=== PATIENT | female | born 1935 | race Caucasian/White ===

== ENCOUNTER 2016-08-03 23:15 | Emergency (ER) | payer MEDICARE, BC ==
[~2016-08-03] VITALS: Ht 165.1 cm; Wt 108.4 kg
[~2016-08-03 23:15] MED LIST: APAP/OXYCODONE1 TA2 PO; ASPIRIN ADULT L81 M2 PO; BACTROBAN NASAL1 GM NS; BYSTOLIC2.5 MG PO; CENTRUM SILVER1 EAC1 PO; DILTIAZEM 24HR360 MG PO; DOCUSATE SOD100 MG PO; DULER200 INH; LEVALBUTER0.63 MG/4 NEB; MAGNESIUM400 M1 PO; MONTELUKAST SOD10 MG PO; MUCINEX1200 M1 PO; NORCO 5-325 TA1 EACH PO; NOVAPLUS V0.09 MG/Ac INH; RESTASIS 0.4 M0.4 M1 OU; SYNTHROID,LEV125 MCG PO; VALSARTAN320 MG PO; VITAMIN D400 UNI1 PO; XOPENEX HF0.045 MG/A IH; ZOLPIDEM TART10 MG PO
[2016-08-03] MEDS ORDERED: MAGNESIUM ELEME30 MG PO (23:32)
[2016-08-04 01:15] LABS: BASO % 0.4 % (0.0-1.0); EOS # 0.3 10*3/uL (0.0-0.4); EOS % 2.4 % (1.0-4.0); HEMATOCRIT 46.5 % (37.0-47.0); IG # 0.1 10*3/uL (0.0-0.1); LYMPH # 1.6 10*3/uL (1.3-4.4); LYMPH % 14.4 % (27.0-41.0); MEAN CELL VOLUME 87.2 fl (81.0-99.0); MEAN CORPUSCULAR HGB 26.3 pg (27.0-31.0); MEAN CORPUSCULAR HGB CONC 30.1 g/dl (33.0-37.0); MEAN PLATELET VOLUME 10.5 fl (9.6-12.3); MONO % 9.2 % (3.0-9.0); NEUT % 73.1 % (47.0-73.0); PLATELET COUNT AUTOMATED 474 10*3/uL (130-400); RED BLOOD COUNT 5.33 10*6/uL (4.10-5.10); RED CELL DISTRI WIDTH 15.9 % (0-14.5); WHITE BLOOD COUNT 10.9 10*3/uL (4.8-10.8)
[2016-08-04 01:31] LABS: ALBUMIN 3.2 gm/dl (3.1-4.5); ALKALINE PHOSPHATASE 78 U/L (45-117); BILIRUBIN, TOTAL 0.3 mg/dl (0.2-1.0); BUN 18 mg/dl (7-24); CARBON DIOXIDE 36 mmol/L (21-32); CHLORIDE 95 mmol/L (98-107); CPK 20 U/L (26-192); EST GLOM FILT AFRICAN AMERICAN > 60 ml/min; GLUCOSE 96 mg/dL (65-99); LDH 141 U/L (84-246); MAGNESIUM 2.5 mg/dL (1.5-2.1); SGOT/AST 13 IU/L (3-35); SGPT/ALT 21 U/L (12-78); SODIUM 136 mmol/L (136-145); TOTAL PROTEIN 6.5 gm/dL (6.4-8.2)
[2016-08-04 01:33] LABS: CKMB 0.9 ng/ml (0.5-3.6); TROPONIN I < 0.015 ng/ml (<0.045)
[2016-08-05] MEDS ORDERED: XOPENEX HF0.045 MG/A IH (15:06)
[2016-08-05] MEDS ORDERED: DOXYCYCLINE100 MG PO (15:06)
[2016-08-05] MEDS ORDERED: XOPENEX0.63 MG NEB (15:06)
[2016-08-05] MEDS ORDERED: MUCINEX1200 M1 PO (15:08)
[2016-08-05] MEDS ORDERED: HYDR25T PO (15:08)
== END 2016-08-04 02:48 | disposition home or self-care (01) ==
LOC: ED 23:15
PROVIDERS: Physician Assistant
DX: R04.0 Epistaxis (principal); Z87.891 Personal history of nicotine dependence; Z90.49 Acquired absence of other specified parts of digestive tract; Z79.82 Long term (current) use of aspirin; Z79.899 Other long term (current) drug therapy; Z88.1 Allergy status to other antibiotic agents; Z88.6 Allergy status to analgesic agent; Z88.8 Allergy status to other drugs, medicaments and biological substances

== ENCOUNTER 2016-08-04 08:30 | Inpatient (IN) | payer MEDICARE, BC ==
[2016-08-04] VITALS (9 sets, daily range): BP systolic 15–178; BP diastolic 78–96
[~2016-08-04] VITALS: Ht 165.1 cm; Wt 125.0 kg
--- NOTE | ~2016-08-04 | CON ---
[place], [place] REPORT OF CONSULTATION [id number] UNIT #: [id number] ROOM: 420 DOCTOR: MELBA MOYER MD BIRTHDATE: [birth year] DOS: 08/05/2016 PULMONARY CONSULTATION EVALUATION AND MANAGEMENT NOTE The consultation requested by hospitalist services for assessment of COPD exacerbation. HISTORY OF PRESENT ILLNESS: This is a 80 years old female who had been admitted to the hospital. The patient has been noted recurrent nasal bleeding as well as increased symptoms of shortness of breath and some cough. The patient denies symptoms of chest pain or any abdominal pain. Wheezing has been described intermittently with the tightness in the chest. The patient states that she has been getting the DuoNeb, is not helping her. She usually used the Xopenex for the patient resulting in improvement in the respiratory symptom. She was seen by [facility] in [place], [place] for the medical management of COPD. She denies any symptoms of chest pain. There were no symptoms of hemoptysis. REVIEW OF SYSTEMS: CONSTITUTIONAL SYMPTOMS: She does complain of fatigue and tiredness. Denies symptoms of fever or chills. EYES: Denies any burning, redness, or tenderness. EARS, NOSE, THROAT SYMPTOMS: No sore throat, hoarseness, otalgia, postnasal drainage or epistaxis. CARDIOVASCULAR SYSTEM: Denies anginal pain, edema of the lower extremities or palpitations. GASTROINTESTINAL SYMPTOMS: Denies dysphagia, nausea, vomiting, diarrhea, abdominal pain, hematemesis, melena, hematochezia. History of chronic obesity was known. SKIN: Denies lesions or rashes. MUSCULOSKELETAL SYMPTOMS: Denies acute joint pain, redness, or tenderness. CENTRAL NERVOUS SYSTEM: Denies dizziness, headache, diplopia or syncopal episodes. The remaining systems were reviewed with the patient, they were noted all negative. PAST MEDICAL HISTORY: Was described as, 1. Chronic atrial fibrillation. 2. Severe COPD. 3. Chronic hypoxic respiratory failure, use of oxygen supplementation 2 liters nasal cannula. 4. Intermittent epistaxis. 5. History of essential hypertension. 6. Severe obesity. 7. Chronic lymphedema of the lower extremities. 8. Decreased mobility secondary to osteoarthritis. 9. History of osteopenia. PAST SURGICAL HISTORY: Reported, 1. Bilateral cataract extraction with lens implantation. 2. Bilateral breast implants and then removal subsequently. [place], [place] REPORT OF CONSULTATION NAME: GURMEET TRAN UNIT #: [id number] ROOM: 420 DOCTOR: RANDALL HERRERA MD,MELBA BIRTHDATE: [birth year] 3. Ablation of the abnormal tract in the heart for this patient. 4. Hemorrhoidectomy. 5. Hysterectomy. 6. Tonsillectomy. SOCIAL HISTORY: The patient denies any tobacco use, alcohol or illicit drugs. She does not have any history of occupation related pulmonary exposure history. The patient is . She has 3 children. The tobacco use was noted younger age for the patient up to 3 packs of cigarettes per day that has been discontinued 25 years ago. FAMILY HISTORY: Father for the patient related to the alcohol use and pneumonia at the age of 3636 years old. The mother at the age of 9494 years old from natural causes and COPD. HOME MEDICATIONS: The patient was listed at the time of admission noted use of aspirin, Restasis eyedrops, Cardizem, Dulcolax, Dulera, Mucinex, Synthroid, magnesium, Singulair, multivitamin, Bystolic, valsartan and zolpidem. DRUG ALLERGIES: NOTED MULTIPLE ALLERGIES THAT INCLUDE THE, 1. BACTRIM. 2. MIRALAX. 3. FELDENE. 4. AVELOX AND ALL OTHER FLUOROQUINOLONES. 5. KEFLEX AND AMOXICILLIN. 6. ALLERGIES TO THE CORTICOSTEROIDS. PHYSICAL EXAMINATION: GENERAL: This is a 80 years old female who has been noted currently awake and alert without any distress at the time of the assessment. VITAL SIGNS: Height for the patient recorded by the nursing staff 5 feet 5 inches, weight of 275 pounds, BMI of 45.8. Vital signs show a normal temperature of the patient since admission. The respiratory rate ranged between 16-20, heart rate 70-72, blood pressure 174/85-147/90. Pulse oxygen saturation of the patient on 3 liters nasal cannula 92-93% saturation. HEENT: Chronic obesity. Head was atraumatic. Eyes nonicterus. NECK: Supple. CARDIOVASCULAR SYSTEM: S1, S2 audible. LUNGS: Noted with moderate decreased breath sounds in the lungs were noted bilaterally with expiratory wheezing. ABDOMEN: Soft, obese, nontender. EXTREMITIES: Shows chronic lymphedema changes for this patient. CENTRAL NERVOUS SYSTEM: Cranial nerves 2-12 intact. No focal deficits. MUSCULOSKELETAL SYMPTOMS: No deformities. SKIN: No lesions or rashes. LABORATORY DATA: The CMP of the patient that was done for the patient on 08/04/2016 for the patient in the Emergency Room of the patient noted normal BUN and creatinine. Carbon dioxide 36. CBC of the patient on 08/04/2016 on admission, WBC count 10.9, hemoglobin 14, hematocrit 46.5, platelet count [place], [place] REPORT OF CONSULTATION NAME: GURMEET TRAN UNIT #: [id number] ROOM: [facility] DOCTOR: RANDALL HERRERA MD,[facility] BIRTHDATE: [birth year] 471,[id number], mildly elevated. CBC of the patient on 08/05/2016, WBC count 11.4, hemoglobin and hematocrit was normal, platelet count is still elevated at 524. PT/PTT this morning normal. BMP this morning showed normal BUN and creatinine, CO2 of 33. The chest x-ray of the patient that was done, 1 view of the patient in the Emergency Room of the patient was reported without any acute pulmonary infiltration, hyperinflation was noted with mild cardiomegaly. IMPRESSION: 1. The patient who had been currently admitted to the hospital noted with acute exacerbation of chronic obstructive pulmonary disease with acute tracheobronchitis for this patient was noted. 2. The patient with intermittent epistaxis noted, most likely dryness of the nasal mucosa with long-term use of oxygen. 3. Chronic obesity. 4. Past history of heavy nicotine abuse of the patient that was discontinued many years ago. 5. History of essential hypertension and other multiple medical problems as noted in the past history. PLAN OF TREATMENT: Since the patient was noted allergy to corticosteroids, she has been ordered the Xopenex with ipratropium of the patient q. 4 hours, which remained as a treatment every 6 hours for the patient for the recurrent exacerbation of COPD. The DuoNeb has been discontinued. Mucinex was ordered for this patient to help improve the secretion clearance of the airways. Sputum for gram stain culture will be obtained. Other supportive therapy, plan of management to be continued as well. Usual care. Further treatment changes will be done based on the progression of the illness. The ENT consultation will be warranted for this patient to assess the patient for the epistaxis and long-term management would be done after that. Thanks for allowing me to participate in the care of this patient. MELBA PEREIRA MD CM:CONSTR:REPORT OF CONSULTATION 1321 08/06/16 0354 interface
[~2016-08-04 08:30] MED LIST changes: +MAGNESIUM ELEME30 MG PO
[2016-08-05] VITALS: BP 143/72
[2016-08-05 05:59] LABS: BASO % 0.1 % (0.0-1.0); HEMOGLOBIN 13.5 g/dl (12.0-16.0); IG # 0.1 10*3/uL (0.0-0.1); LYMPH # 0.7 10*3/uL (1.3-4.4); MEAN CELL VOLUME 84.5 fl (81.0-99.0); MEAN CORPUSCULAR HGB 26.5 pg (27.0-31.0); MEAN CORPUSCULAR HGB CONC 31.4 g/dl (33.0-37.0); MEAN PLATELET VOLUME 10.5 fl (9.6-12.3); MONO # 0.6 10*3/uL (0.1-1.0); MONO % 5.6 % (3.0-9.0); NEUT % 87.2 % (47.0-73.0); PLATELET COUNT AUTOMATED 524 10*3/uL (130-400); RED BLOOD COUNT 5.09 10*6/uL (4.10-5.10); RED CELL DISTRI WIDTH 15.8 % (0-14.5); WHITE BLOOD COUNT 11.4 10*3/uL (4.8-10.8)
[2016-08-05 06:24] LABS: BUN 15 mg/dl (7-24); CARBON DIOXIDE 33 mmol/L (21-32); CHLORIDE 95 mmol/L (98-107); CHOLESTEROL 166 mg/dL (<200); EST GLOM FILT AFRICAN AMERICAN > 60 ml/min; FREE T4 1.38 ng/dl (0.76-1.46); GLUCOSE 166 mg/dL (65-99); HDL CHOLESTEROL 57 mg/dl (40-60); LDL CHOLESTEROL 89 mg/dL (9-159); MAGNESIUM 2.3 mg/dL (1.5-2.1); POTASSIUM 3.8 mmol/L (3.5-5.1); SODIUM 135 mmol/L (136-145); TRIGLYCERIDES 99 mg/dl (<150); VLDL CHOLESTEROL 20 mg/dL (6-40)
[2016-08-05 06:40] LABS: PROTHROMBIN TIME 10.4 SECONDS (9.0-12.4)
[2016-08-05 06:49] LABS: HEMOGLOBIN A1c 5.3 % (4.8-5.6)
[2016-08-05 08:00] VITALS: BP 178/86
[2016-08-05 08:31] LABS: VITAMIN D, 25-HYDROXY 29.3 ng/mL (30-100)
[2016-08-05 08:32] LABS: FOLIC ACID 23.51 ng/mL (>5.38)
[2016-08-05 12:00] VITALS: BP 174/85
[2016-08-05] MEDS ORDERED: DOXYCYCLINE100 MG PO (15:06)
[2016-08-05] MEDS ORDERED: XOPENEX0.63 MG NEB (15:06)
[2016-08-05] MEDS ORDERED: XOPENEX HF0.045 MG/A IH (15:06)
[2016-08-05] MEDS ORDERED: HYDR25T PO (15:08)
[2016-08-05] MEDS ORDERED: MUCINEX1200 M1 PO (15:08)
[2016-08-05 16:00] VITALS: BP 158/78
== END 2016-08-05 16:30 | disposition home or self-care (01) | DRG 189 ==
LOC: ED 08:30 → EDHOLD 09:19 → 4E 09:49
PROVIDERS: Family Medicine
DX: J96.20 Acute and chronic respiratory failure, unspecified whether with hypoxia or hypercapnia (principal); J44.0 Chronic obstructive pulmonary disease with (acute) lower respiratory infection; I48.2 Chronic atrial fibrillation; Z99.81 Dependence on supplemental oxygen; J44.1 Chronic obstructive pulmonary disease with (acute) exacerbation; Z68.42 Body mass index [BMI] 45.0-49.9, adult; I89.0 Lymphedema, not elsewhere classified; M85.80 Other specified disorders of bone density and structure, unspecified site; I10 Essential (primary) hypertension; E03.9 Hypothyroidism, unspecified; E66.01 Morbid (severe) obesity due to excess calories; J20.9 Acute bronchitis, unspecified; R04.0 Epistaxis; Z96.1 Presence of intraocular lens; Z88.2 Allergy status to sulfonamides; Z88.1 Allergy status to other antibiotic agents; Z88.8 Allergy status to other drugs, medicaments and biological substances; Z91.048 Other nonmedicinal substance allergy status; Z98.42 Cataract extraction status, left eye; Z98.41 Cataract extraction status, right eye; Z90.49 Acquired absence of other specified parts of digestive tract; Z90.710 Acquired absence of both cervix and uterus; Z87.891 Personal history of nicotine dependence; Z81.1 Family history of alcohol abuse and dependence; Z82.5 Family history of asthma and other chronic lower respiratory diseases

== ENCOUNTER → 2016-10-28 | Outpatient (CLI) | payer MEDICARE, BC ==
[~2016-10-28] MED LIST changes: +DOXYCYCLINE100 MG PO; +HYDR25T PO; +XOPENEX0.63 MG NEB
[2016-10-28 10:34] LABS: BASO % 0.4 % (0.0-1.0); EOS # 0.2 10*3/uL (0.0-0.4); EOS % 2.1 % (1.0-4.0); HEMATOCRIT 41.9 % (37.0-47.0); HEMOGLOBIN 12.8 g/dl (12.0-16.0); IG # 0.1 10*3/uL (0.0-0.1); LYMPH # 1.4 10*3/uL (1.3-4.4); LYMPH % 18.1 % (27.0-41.0); MEAN CELL VOLUME 92.3 fl (81.0-99.0); MEAN CORPUSCULAR HGB 28.2 pg (27.0-31.0); MEAN CORPUSCULAR HGB CONC 30.5 g/dl (33.0-37.0); MEAN PLATELET VOLUME 10.4 fl (9.6-12.3); MONO # 0.6 10*3/uL (0.1-1.0); MONO % 7.2 % (3.0-9.0); NEUT # 5.7 10*3/uL (2.3-7.9); NEUT % 71.3 % (47.0-73.0); PLATELET COUNT AUTOMATED 386 10*3/uL (130-400); RED BLOOD COUNT 4.54 10*6/uL (4.10-5.10); RED CELL DISTRI WIDTH 15.3 % (0-14.5)
[2016-10-28 10:55] LABS: ALBUMIN 2.9 gm/dl (3.1-4.5); ALKALINE PHOSPHATASE 73 U/L (45-117); BILIRUBIN, TOTAL 0.4 mg/dl (0.2-1.0); BUN 13 mg/dl (7-24); CARBON DIOXIDE 35 mmol/L (21-32); CHLORIDE 97 mmol/L (98-107); EST GLOM FILT AFRICAN AMERICAN > 60 ml/min; GLUCOSE 86 mg/dL (65-99); POTASSIUM 4.1 mmol/L (3.5-5.1); SGOT/AST 14 IU/L (3-35); SGPT/ALT 16 U/L (12-78); SODIUM 138 mmol/L (136-145); TOTAL PROTEIN 6.4 gm/dL (6.4-8.2)
== END | disposition home or self-care (01) ==
LOC: LAB 10:04
PROVIDERS: Internal Medicine
DX: D50.9 Iron deficiency anemia, unspecified (principal); E03.9 Hypothyroidism, unspecified; Z79.899 Other long term (current) drug therapy

== ENCOUNTER 2018-04-18 09:45 | Inpatient (IN) | payer MEDICARE, BC ==
[2018-04-18] VITALS (34 sets, daily range): BP systolic 70–169; BP diastolic 44–99
[~2018-04-18] VITALS: Ht 165.1 cm; Wt 103.4 kg
--- NOTE | ~2018-04-18 | PR ---
[place], [place] PROGRESS NOTE NAME: GURMEET TRAN UNIT #: [id number] ROOM: [facility] DOCTOR: BENITA DENG MD BIRTHDATE: [birth year] DOS: 04/19/2018 SUBJECTIVE: The patient still deeply sedated, intubated and on mechanical ventilation. PHYSICAL EXAMINATION: VITAL SIGNS: Blood pressure ranging between 71 systolic to 101 systolic, heart rate of 80 beats per minute, breathing 16 times per minute on mechanical ventilation and temperature of 98.7 degrees Fahrenheit. GENERAL APPEARANCE: The patient deeply sedated and intubated and on mechanical ventilation. HEENT AND NECK: Exam within normal limits. CARDIOVASCULAR SYSTEM: Heart rate is regular in rate and rhythm. S1 and S2 normally audible. LUNGS: Clear to auscultation. ABDOMEN: Soft, nontender. No obvious organomegaly. Bowel sounds are present. EXTREMITIES: Without significant cyanosis or edema. IMPRESSION: 1. Acute respiratory failure with pneumonia and sepsis along with congestive heart failure, suspected congestive heart failure. The patient now intubated and on mechanical ventilation and being treated with antibiotics. The patient's leukocytosis still present with a white cell count of 18,000. We are taking bedsore precautions using an air mattress and regular every 2 hour turning. 2. Hypokalemia, treated with extra potassium supplements. Levels will be repeated. 3. Leukocytosis secondary to pneumonia and sepsis. 4. Acute exacerbation of chronic obstructive pulmonary disease, being treated as mentioned above with DuoNebs and oxygen and mechanical ventilation. 5. Hypotension secondary to sepsis, being treated with Levophed and hydration with normal saline. 6. Hypothyroidism, treated with thyroid supplements. 7. Chronic lymphedema in lower extremities to be managed with compression socks. 8. Adult failure to thrive history. We are taking bedsore precautions. 9. Morbid obesity with a BMI of 38. [place], [place] PROGRESS NOTE NAME: GURMEET TRAN UNIT #: [id number] ROOM: [facility] DOCTOR: BENITA DENG MD BIRTHDATE: [birth year] BENITA DENG MD CM:PNTRANS [id number] BENITA DENG MD 04/20/18 0452 interface
--- NOTE | ~2018-04-18 | PR ---
[place], [place] PROGRESS NOTE NAME: GURMEET TRAN UNIT #: [id number] ROOM: [facility] DOCTOR: YEIMI MACE,ABHINAV BIRTHDATE: [birth year] DOS: 04/22/2018 REASON FOR VISIT: Elevated troponin and atrial fibrillation. HISTORY OF PRESENT ILLNESS: The patient is on the ventilator, alert. Denies any chest pain or palpitations. REVIEW OF SYSTEMS: Review of the 10 system negative, but limited due to patient being on ventilator. RHYTHM STRIPS: The patient was in atrial fibrillation with a controlled ventricular rate. PHYSICAL EXAMINATION: VITAL SIGNS: Blood pressure 124/57, pulse 87, respiratory rate 20. GENERAL: Alert, comfortable, in no acute distress. The patient is on ventilator. HEAD AND NECK: The patient on the vent, but alert. NECK: Supple, no distended neck veins, no carotid bruit. CHEST: Symmetrical. LUNGS: Few scattered rhonchi. HEART: Slightly irregular. No S3. ABDOMEN: Obese, nontender. EXTREMITIES: Showed 2+ edema bilaterally, which is chronic. Distal pulses are fair. SKIN: Warm and dry. No cyanosis, no clubbing. MEDICATIONS AND LABORATORIES: Reviewed. IMPRESSION: 1. Elevated troponin due to acute hypoxic respiratory failure. 2. Atrial fibrillation, new onset. 3. Respiratory failure, on mechanical ventilation. 4. Sepsis. 5. Chronic lymphedema. 6. Hypertension. RECOMMENDATIONS: 1. Continue current medications. 2. Blood pressure and heart rates are stable. 3. Once she is extubated, we will discuss with her and her family regarding risks and benefits of the long-term oral anticoagulation. 4. There is no family at bedside at the time of examination. [place], [place] PROGRESS NOTE NAME: GURMEET TRAN UNIT #: [id number] ROOM: [facility] DOCTOR: ABHINAV JALLOH MD BIRTHDATE: [birth year] ABHINAV JALLOH MD CM:PNTRANS [id number] ABHINAV JALLOH MD 04/23/18 0315 interface
--- NOTE | ~2018-04-18 | CON ---
[place], [place] REPORT OF CONSULTATION NAME: GURMEET TRAN UNIT #: [id number] ROOM: [facility] DOCTOR: ABHINAV JALLOH MD BIRTHDATE: [birth year] DOS: 04/19/2018 REASON FOR CONSULTATION: Elevated troponin. CLINICAL HISTORY: The patient is an 82-year-old patient who was brought to the Emergency Room for acute respiratory failure and patient requiring intubation and was admitted to the hospital and she noted to have a slightly elevated cardiac troponin and Cardiology consulted for further recommendations. Since the patient on the ventilator and sedated, history was obtained from the chart and the nursing staff. There is no family at the bedside at the time of examination. Apparently, there is no chest pain, syncope at home prior to admission. She was diagnosed with respiratory failure and sepsis. REVIEW OF SYSTEMS: Review of the 10 systems are limited due to the patient being on ventilator and sedated. PAST MEDICAL HISTORY: 1. History of hypertension. 2. Atrial fibrillation. 3. Hypothyroidism. 4. Lymphedema. 5. Morbid obesity. PAST SURGICAL HISTORY: 1. Bilateral breast implants. 2. History of radiofrequency ablation, details unknown. 3. Cholecystectomy. 4. Hysterectomy. 5. Hemorrhoidectomy. 6. Tonsillectomy. 7. Cataract surgery. SOCIAL HISTORY: Longstanding smoking 50+ years. Does not drink alcohol, does not use illicit drugs. FAMILY HISTORY: Nil contributory due to her age. Mother has COPD and father history of alcohol use. ALLERGIES: THE PATIENT IS ALLERGIC TO MULTIPLE MEDICATIONS. MEDICATIONS: Reviewed. PHYSICAL EXAMINATION: VITAL SIGNS: Blood pressure 125/62, pulse 75, respirations 14, weight 103.4 kilos. GENERAL: The patient was on ventilator and sedated. HEAD AND NECK: The patient on ventilator and sedated. NECK: Supple. No distinct mass, no carotid bruit. CHEST: Symmetrical. LUNGS: A few scattered rhonchi, diminished at bases. [place], [place] REPORT OF CONSULTATION NAME: GURMEET TRAN UNIT #: [id number] ROOM: [facility] DOCTOR: ABHINAV JALLOH MD BIRTHDATE: [birth year] HEART: Regular rhythm, no S3. Grade 1/6 systolic murmur. ABDOMEN: Bowel sounds normal. EXTREMITIES: Showed 1-2+ edema. Distal pulses are palpable. SKIN: Warm and dry. No cyanosis, no clubbing. RECTAL: Deferred. NEUROLOGIC: Limited due to the patient was on ventilator and sedated. Labs, imaging studies, and EKG reviewed. EKG shows sinus rhythm, right bundle branch block, old inferior infarction, T-wave inversion V1-V3. Cardiac troponin 0.1. CBC, chemistry reviewed. Potassium 3.0, hemoglobin 10.4, white cell count 18,000. IMPRESSION: 1. Acute hypoxic respiratory failure, on mechanical ventilation. 2. Sepsis. 3. Borderline elevation of troponin, probably secondary to her hypoxia and respiratory failure. 4. Hypertension. 5. Encephalopathy. 6. Leukocytosis. 7. Mild hypokalemia. 8. Right bundle branch block. 9. Non-morbid obesity. 10. Chronic lymphedema. RECOMMENDATIONS: 1. Currently, her blood pressure and heart rates are stable. 2. Check 2D echo for LV function and valvular function. 3. There is no family at bedside at the time of my examination. No further cardiac testing at this time except a 2D echo and hopefully we can get out of the ventilator soon. 4. Continue current cardiac medications including aspirin, beta blockers and Cardizem. ABHINAV JALLOH MD CM:CONSTR:REPORT OF CONSULTATION 33 04/20/18 1529 interface
--- NOTE | ~2018-04-18 | PR ---
[place], [place] PROGRESS NOTE NAME: GURMEET TRAN [facility] #: [id number] UNIT #: [id number] ROOM: [facility] DOCTOR: RANDALL HERRERA MD,MELBA BIRTHDATE: [birth year] DOS: 04/20/2018 PULMONARY CRITICAL CARE FOLLOWUP SUBJECTIVE: The patient was seen and examined on 04/20/2018. She remains on mechanical ventilation. Sedation has been currently given to the patient as propofol 25 mcg per kilogram per minute infusion. She was also noted with Levophed. The dose has been increased to 60 mcg per kilogram per minute infusion as well. The patient has A line in place. She has not been noted any ongoing acute new respiratory complaints. The patient at this time. The diuretic therapy was continued, Lasix 40 mg b.i.d., given 80 mg oral Lasix dose yesterday. She has been noted with a pleural fluid negative fluid balance. The patient had 50 mL with that. Other urinary output. The patient has been increased. The patient was continued on antibiotics. She has been continued managed by the Infectious Disease specialist for the infectious reasons. The family member at this time has been still deciding further advanced directive and care for this patient. Once the patient will be liberated from mechanical ventilator firm decision has not been used by the family members. Certainly they do not wish the patient to have a tracheostomy performed if that will be needed post-liberation from mechanical ventilation. Low grade fever noted, which was a rectal temperature. OBJECTIVE: VITAL SIGNS: Blood pressure ranges between 75 and 80-100/70. The temperature of the patient 99.5 degree Fahrenheit, respiration 14, same mechanical ventilator, heart rate of 94 with atrial fibrillation. The pulse oxygen saturation of the patient recorded 40% oxygen 97% saturation. HEENT: The patient remained orally intubated, orogastric tube is in place. There was no further evidence of bleeding blood solution and throat were noted, which were suctioned out. Head was atraumatic. CARDIOVASCULAR: S1, S2 is audible. LUNGS: The patient was noted with moderate decreased breath sounds in the lungs bilaterally with occasional crackles. There was no wheezing. ABDOMEN: Soft with morbid obesity. Bowel sounds present. EXTREMITIES: Still shows severe edema of the extremity with finding of anasarca. Partial reduction noted from yesterday. VISIBLE SKIN: No lesions or rashes. MUSCULOSKELETAL: No deformity. CENTRAL NERVOUS SYSTEM: The patient was nodding head with reduction sedation or sedation vacation that was confirmed this morning. LABORATORY DATA: The endotracheal aspirate of this month, many white blood cells, rare gram-positive cocci in pairs and rare gram-positive bacilli normal. Preliminary final results are pending. The culture of the urine shows light growth of Citrobacter freundii. Arterial blood gas today, pH of 7.43, pCO2 of 46, pO2 of 93 on assist control, volume control, mechanical ventilation 40% oxygen. BMP this morning, BUN 22, creatinine was normal. Glucose 125. Potassium 3.2 this morning, CO2 35. Magnesium yesterday noted 1.6 in the BMP which were repeated after the initial infusion of the potassium for this patient's supplements shows potassium 2.8. After that, the patient received 2 [place], [place] PROGRESS NOTE NAME: GURMEET TRAN UNIT #: [id number] ROOM: [facility] DOCTOR: RANDALL HRERERA MD,MELBA BIRTHDATE: [birth year] more care under potassium chloride 20 The patient each dose. IMPRESSION: 1. The patient was noted with acute congestive heart failure, anasarca with possibly diastolic dysfunction. 2. Morbid obesity suspicion of obstructive sleep apnea disorder. 3. Acute exacerbation of chronic obstructive pulmonary disease. 4. Rule out any superimposed infection as well. If colonization of the urine most likely will be considered to light growth of urine culture was showing Citrobacter freundii. 5. The patient morbid obesity with overall debility in mostly bed bound status. PLAN OF MANAGEMENT: Continuation of the current medical management, plan continue diuretic therapy, minimizing intravenous fluid intake. The concentration of Levophed will be doubled up. The decrease the Levophed dose to maintain of 65 or greater. Continue ventilator bundle management. Usual care. Supportive therapy, plan of management. We will most likely be started patient tomorrow morning depends on further improvement in the respiratory status in general, obtain a chest x-ray in the morning. Supplementation of potassium has been ordered 2 more doses of intravenous infusion of potassium chloride 20 mEq each and then daily dose of potassium 40 with the NG tube will be started. The feeding for the patient will be continued same dose at this time with hyperchloremic feet. Usual care, other supportive therapy, plan of management, care plan and therapies and care. Total time in pulmonary critical evaluation and management was 38 minutes. MELBA PEREIRA MD CM:DILLANTRANS [id number] MELBA HERRERA MD 04/20/18 1839 interface
--- NOTE | ~2018-04-18 | PR ---
[place], [place] PROGRESS NOTE NAME: GURMEET TRAN [facility] #: [id number] UNIT #: [id number] ROOM: [facility] DOCTOR: RANDALL HERRERA MD,MELBA BIRTHDATE: [birth year] DOS: 04/23/2018 SUBJECTIVE: The patient was noted comfortable at this time successfully treated with mechanical ventilation, use the BiPAP pressure to lower pressure because of the difficulty tolerating to improve her pressure with the BiPAP as advised. This morning, using oxygen supplementation nasal cannula, noted fully awake and alert and conversing, can speak. She has been kept n.p.o. intentionally for the last 24 hours to assess the swallowing the patient this morning prior to starting oral nutrition support. She denies symptoms of chest pain or dysphagia. She was asked for food as well. Denies symptoms of nausea, vomiting, diarrhea, abdominal pain, hematemesis or melena. The edema of the lower extremity has been noted with gradual reduction. She denies symptoms of headache or diplopia. OBJECTIVE: VITAL SIGNS: Normal temperature, respiratory rate 16, heart rate 83, blood pressure 95/25. The patient's vasopressors have been gradually decreased and discontinued. The pulse ox saturation 90% on 3 liters nasal cannula, BiPAP 94% saturation 35%-40% oxygen use. HEENT: No new change. NECK: Supple. CARDIOVASCULAR: S1, S2 is audible. LUNGS: The patient was noted without any wheezing or crackles. ABDOMEN: Soft, nontender. Bowel sounds present. EXTREMITIES: The patient was noted with chronic lymphedema superimposed edema. MUSCULOSKELETAL: Without acute deformities. CENTRAL NERVOUS SYSTEM: Unable to assess, but noted with generalized weakness and fatigue. The patient has been moving the upper extremities and decreased movement in the lower extremities. LABORATORY DATA: The patient's CMP this morning, BUN normal, creatinine was normal, CO2 of 41. Sodium 147. Albumin 1.8. IMPRESSION: The patient with anasarca picture, congestive heart failure, diastolic dysfunction, metabolic alkalosis secondary to intravascular volume depletion and hypernatremia, morbid obesity, suspected obstructive sleep apnea disorder, acute exacerbation of chronic obstructive pulmonary disease. PLAN OF MANAGEMENT: Physical therapy and occupation therapy. Bronchodilator to be continued. Continuation of other therapy, plan of management at this time. Diuretic will be changed to the Lasix. The patient switching from IV to oral dose as well. Monitor metabolic alkalosis. At this time, no intervention will be necessary. Continue to use BiPAP intermittent during the continuous at nighttime. Other palliative care to be continued. Physical therapy and occupation therapy. Vasopressors in case of the mean arterial pressure of less than 65. The patient has been assessed personally at the bedside and noted without any swallowing difficulty with clear liquids. She will be started on the regular diet. The patient has tolerated for the calorie support and nutritional support. Past, family, social, surgical history remains unchanged since admission, documentation in my consultation. [place], [place] PROGRESS NOTE NAME: GURMEET TRAN UNIT #: [id number] ROOM: [facility] DOCTOR: MELBA MOYER MD BIRTHDATE: [birth year] MELBA PEREIRA MD CM:PNTRANS [id number] MELBA HERRERA MD 04/23/18 1537 interface
--- NOTE | ~2018-04-18 | CON ---
[place], [place] REPORT OF CONSULTATION NAME: GURMEET TRAN UNIT #: [id number] ROOM: [facility]- DOCTOR: JAMIN OROZCO MD BIRTHDATE: [birth year] DOS: 04/18/2018 REASON FOR CONSULTATION: Pneumonia/sepsis. CHIEF COMPLAINT: Altered mental status. HISTORY OF PRESENT ILLNESS: This is an 82-year-old female presenting from custodial for chief complaint of altered mental status. Currently, the patient is intubated in the ICU and on pressors. Her son is at bedside who provided me much of the history. According to the son, 2 days prior to the presentation she was at baseline quite sharp and did not have any complaints and he really does not know what happened in the last 2 days. She was having difficulty breathing and according to the son, she was on lot of Lasix because of her leg swelling. On review of her vitals, she is afebrile, currently on 100% FiO2. Labs revealed leukocytosis of 17,000, which is predominantly neutrophilic. Her urinalysis shows pyuria. Blood cultures, urine cultures are in process. The patient has been started on vanc, meropenem and azithromycin. Chest x-ray done shows bilateral small pleural effusions and right perihilar opacities. No previous recent chest x-rays to compare. In the past, her urine cultures have grown Citrobacter as well as E. coli. No recent admissions in last few months. I do not have the records from custodial if she has been treated for UTI recently. PAST MEDICAL HISTORY: Significant for AFib, COPD, constipation, epistaxis, hypertension, hypothyroidism, lymphedema of both lower extremities, morbid obesity, pelvic fracture. PAST SURGICAL HISTORY: Bilateral cataract extract, bilateral breast implant and subsequent removal, history of cardiac radiofrequency ablation, cholecystectomy, hemorrhoidectomy, hysterectomy, tonsillectomy. SOCIAL HISTORY: Significant for 50 plus pack-year history of smoking, nonalcoholic, no illicit drug use. FAMILY HISTORY: Father had a history of alcohol abuse. Mother history of COPD. ALLERGIES: Extensive allergy list that included AMOXICILLIN, CEFDINIR, KEFLEX, CIPRO and LEVAQUIN, MOXIFLOXACIN, BACTRIM. Type of allergy not mentioned. HOME MEDICATIONS: Reviewed. REVIEW OF SYSTEMS: Cannot be obtained as the patient is intubated and sedated. PHYSICAL EXAMINATION: VITAL SIGNS: Current vitals include temperature 97.2, pulse rate 68, respiratory rate 14, blood pressure 132/63, currently 100% of FiO2. GENERAL: The patient is currently intubated and sedated. HEENT: Atraumatic, normocephalic. PERRLA, EOMI. RESPIRATORY: Air entry bilaterally equal. Coarse crackles bilateral lungs. CARDIOVASCULAR: S1, S2 normal, no murmurs or rubs. [place], [place] REPORT OF CONSULTATION NAME: GURMEET TRAN UNIT #: [id number] ROOM: [facility] DOCTOR: JAMIN OROZCO MD BIRTHDATE: [birth year] ABDOMEN: Soft, nontender, nondistended. EXTREMITIES: Bilateral extensive lymphedema. SKIN: There is papular rash over her upper chest with erythematous base. No pus. LABORATORY AND IMAGING: Reviewed, mentioned in HPI. ASSESSMENT: 1. Acute encephalopathy, infectious versus metabolic causes. 2. Leukocytosis. 3. Sepsis, pneumonia/urinary tract infection. PLAN: 1. At this time, although it is unclear what led to her acute encephalopathy, according to the family she was not having much of pneumonia symptoms and a chest x-ray at this time shows some perihilar changes which could be cardiac in nature as well; however, the patient has hemodynamic instability and I would treat it as pneumonia as well until respiratory cultures are done and they are normal. 2. UA does show pyuria. She does not have any chronic indwelling Hummel catheter. Follow the urine cultures. Recent urine culture shows Citrobacter. I am not clear whether she was treated appropriately for that or not. The patient has a big list of allergies including amoxicillin, cefdinir, but she is tolerating meropenem, can discontinue vancomycin. Okay to keep meropenem plus azithromycin. Check for rapid influenza. Consider Cardiology consult. Thank you for your consult. Please call for any questions. Jamin Orozco MD CM:CONSTR:REPORT OF CONSULTATION 1653 04/19/18 0225 interface
--- NOTE | ~2018-04-18 | PR ---
[place], [place] PROGRESS NOTE NAME: GURMEET TRAN [facility] #: [id number] UNIT #: [id number] ROOM: [facility] DOCTOR: TA RAGLAND MD BIRTHDATE: [birth year] DOS: 04/24/2018 CARDIOLOGY PROGRESS NOTE SUBJECTIVE: The patient was seen at her bedside today 04/24/2018 for followup of her dyspnea and hypotension. She was weaned off of pressors and her blood pressure now is 97/48. She remains afebrile. She tells me that she feels more breathless this morning and that she is working harder to breathe. Nurses note that she does seem more comfortable when on BiPAP. For the last 5 days, she has been in negative fluid balance, although her diuresis is dropping off. She denies any chest pain. She has a nonproductive cough. PHYSICAL EXAMINATION: VITAL SIGNS: Today, her pulse is 73 and regular, blood pressure is 97/48. She is afebrile. She weighs 103.4 kilograms. NECK: Supple. I see no jugular distention. Carotids are full. LUNGS: Respirations are labored at rest and she has tachypnea. She does have decreased breath sounds at the bases. I heard no rales. HEART: Had a regular rhythm with an S4 gallop. I hear no S3. Heart tones are distant, however. ABDOMEN: Obese. EXTREMITIES: Both upper and lower do seem "puffy". She does have lymphedema but in addition, she does appear to have some pitting. LABORATORY DATA: Hemoglobin is 9.3, white count 8700, platelet count 297,000. Sodium 147, potassium 3.7, BUN 17, creatinine 0.4, total protein is low at 5.4 with an albumin of 1.8. Her most recent blood gas was done 2 days ago while she was still intubated. Her pH was 7.358 with a pCO2 of 67.5 and a pO2 of 94.2. IMPRESSION: 1. Borderline elevation of troponin due to hypoxic respiratory failure. 2. Paroxysmal atrial fibrillation. The patient is currently in sinus rhythm. 3. Respiratory failure. The patient has tolerated extubation. 4. Lymphedema. 5. Hypotension, etiology not fully determined. Her echocardiogram showed normal left ventricular function. 6. Pneumonia and urinary tract infection with sepsis. These appear to be well controlled. PLAN: We will check another chest x-ray today along with a blood gas. The patient will be using BiPAP as needed. We thank the hospitalist physicians for asking our advice regarding her care. [place], [place] PROGRESS NOTE NAME: GURMEET TRAN UNIT #: [id number] ROOM: [facility] DOCTOR: TA RAGLAND MD BIRTHDATE: [birth year] TA RAGLAND MD CM:PNTRANS [id number] TA RAGLAND MD 04/25/18 0414 interface
--- NOTE | ~2018-04-18 | PR ---
[place], [place] PROGRESS NOTE NAME: GURMEET TRAN UNIT #: [id number] ROOM: [facility] DOCTOR: ABHINAV JALLOH MD BIRTHDATE: [birth year] DOS: 04/20/2018 CARDIOLOGY FOLLOWUP VISIT NOTE REASON FOR VISIT: Atrial fibrillation and elevated troponin. SUBJECTIVE: The patient is still on the ventilator, but alert, no acute distress. Family is at bedside. REVIEW OF SYSTEMS: Limited since the patient was on a ventilator. RHYTHM STRIPS: The patient is in atrial fibrillation with occasional rapid ventricular rate. PHYSICAL EXAMINATION: VITAL SIGNS: Reviewed. GENERAL: The patient is alert, but on ventilator. HEENT: Pupils are round and equal. NECK: Supple, no distended neck veins, no carotid bruit. CHEST: Symmetrical. LUNGS: A few scattered rhonchi. Good air entry bilaterally. HEART: Irregularly irregular, grade 1/6 systolic murmur. ABDOMEN: Benign, nontender. Bowel sounds normal. EXTREMITIES: Showed 2+ edema. Distal pulses are fair. SKIN: Warm and dry. No cyanosis. MEDICATIONS: Reviewed. LABORATORY DATA: Reviewed. IMPRESSION: 1. Borderline elevation of troponin due to hypoxic respiratory failure. 2. Atrial fibrillation with rapid ventricular rate. 3. Respiratory failure, on ventilator. 4. Hypertension. 5. Sepsis. 6. Chronic lymphedema. RECOMMENDATIONS: 1. Add digoxin for her rate control. 2. Monitor blood pressure and heart rates. 3. Briefly discussed with her son who is at bedside regarding risks and benefits of the oral anticoagulation. Continue her Lovenox for now. 4. Once the patient is extubated, we will discuss oral anticoagulation. [place], [place] PROGRESS NOTE NAME: GURMEET TRAN UNIT #: [id number] ROOM: [facility] DOCTOR: ABHINAV JALLOH MD BIRTHDATE: [birth year] ABHINAV JALLOH MD CM:PNTRANS [id number] ABHINAV JALLOH MD 04/21/18 0136 interface
--- NOTE | ~2018-04-18 | DS ---
[place], [place] DISCHARGE SUMMARY NAME: GURMEET TRAN UNIT #: [id number] ROOM: [facility] DOCTOR: BENITA DENG MD BIRTHDATE: [birth year] DOS: 04/25/2018 DISCHARGE DIAGNOSES: 1. Borderline elevation of troponin I levels secondary to hypoxemic respiratory failure. 2. Paroxysmal atrial fibrillation. 3. Acute over chronic respiratory failure with acute exacerbation of chronic obstructive pulmonary disease. 4. Bilateral chronic leg edema. 5. Hypotension from heart failure, but echocardiogram showing normal left ventricular ejection fraction. 6. Pneumonia, urinary tract infection and sepsis. 7. Advanced adult failure to thrive. 8. Morbid obesity with BMI of 38. HOSPITAL COURSE: The patient was admitted and treated for acute exacerbation of COPD and acute over chronic respiratory failure along with pneumonia, treated with bronchodilators, antibiotics, oxygen and the patient's condition improved. The patient went into acute respiratory failure and required intubation and mechanical ventilation and finally was weaned off the ventilator by Dr. England. Leukocytosis secondary to pneumonia, improved with treatment. Benign essential hypertension. Blood pressure was monitored and treated. The patient remained on Cardizem. The patient did have a hypotensive episode, which resolved. Hypothyroidism, replaced with thyroid supplements. Chronic lymphedema involving lower extremities, treated with compression socks. Advance adult failure to thrive. We took bedsore and fall precautions and turn him every 2 hours. DISCHARGE MANAGEMENT: Colace 200 mg daily, Synthroid 150 mcg daily, Zebeta 2.5 mg every 12 hours, Cardizem 90 mg every 6 hours, DuoNebs every 4 hours, Protonix 40 mg daily. [place], [place] DISCHARGE SUMMARY NAME: GURMEET TRAN UNIT #: [id number] ROOM: [facility] DOCTOR: BENITA DENG MD BIRTHDATE: [birth year] BENITA DENG MD CM:DISCHARG [id number] BENITA DENG MD 05/21/18 1118 interface
--- NOTE | ~2018-04-18 | PR ---
[place], [place] PROGRESS NOTE NAME: GURMEET TRAN UNIT #: [id number] ROOM: [facility] DOCTOR: BENITA DENG MD BIRTHDATE: [birth year] DOS: 04/21/2018 SUBJECTIVE: The patient is still intubated and on mechanical ventilation for acute respiratory failure and remains hypotensive and on vasopressors. OBJECTIVE: VITAL SIGNS: Blood pressure 128/42, heart rate of 94 beats per minute, breathing 14 times per minute, on the ventilator and sedated, afebrile. GENERAL APPEARANCE: The patient is alert and oriented x 3, in no visible distress, except for generalized weakness and obesity. HEENT AND NECK: Exam within normal limits. CARDIOVASCULAR SYSTEM: Heart rate is regular in rate and rhythm. S1 and S2 normally audible. LUNGS: Clear to auscultation. ABDOMEN: Soft, nontender. No obvious organomegaly. Bowel sounds are present. EXTREMITIES: Without significant cyanosis or edema. IMPRESSION: 1. The patient with atrial fibrillation with rapid ventricular response, which is being now controlled with digoxin by Dr. Hope. 2. Acute respiratory failure. The patient intubated and on mechanical ventilation as well as sedation and being treated with bronchodilators and blood gases showed baseline ph. Dr. England is following now. 3. Pneumonia and leukocytosis, improving with antibiotics. 4. Acute exacerbation of chronic obstructive pulmonary disease, improving with treatment. 5. Persistent hypotension, being followed by Cardiology. The patient has been taken off blood pressure medications. 6. Hypothyroidism, replaced with supplements. 7. Chronic lymphedema of the lower extremities bilaterally. 8. Adult failure to thrive. We are taking bedsore precautions and turning every 2 hours as well as using an air mattress. 9. Morbid obesity, BMI of 38. [place], [place] PROGRESS NOTE NAME: GURMEET TRAN UNIT #: [id number] ROOM: [facility] DOCTOR: BENITA DENG MD BIRTHDATE: [birth year] BENITA DENG MD CM:PNTRANS 1550 BENITA DENG MD 04/21/18 4466 interface
--- NOTE | ~2018-04-18 | EKG ---
[place], [place] ELECTROCARDIOGRAM REPORT NAME: GURMEET TRAN UNIT #: [id number] ROOM: [facility] DOCTOR: LINDA DRAFT REPORT BIRTHDATE: [birth year] [facility] Test Date: 2018-04-18 Test Time: 10:02:58 Pat Name: GURMEET TRAN Department: Room: [facility] Gender: F [employer] Superintendent: Debbie Vail : 1935 Requested By: LEONEL MAN Order Number: [id number] Reading MD: Melissa Berg MD Measurements Intervals [place] Rate: 71 P: 17 NC: 181 QRS: -30 QRSD: 122 T: 1 QT: 427 QTc: 465 Interpretive Statements Sinus rhythm Right bundle branch block Inferior infarct, old Electronically Signed On 04-20-2018 11:23:45 PST by Melissa Berg MD CM:EKGRPT:ELECTROCARDIOGRAM REPORT 1002 [id number] LEONEL BRIDGES DRAFT REPORT LEONEL MAN DO
--- NOTE | ~2018-04-18 | PR ---
[place], [place] PROGRESS NOTE NAME: GURMEET TRAN UNIT #: [id number] ROOM: [facility] DOCTOR: MELBA MOYER MD BIRTHDATE: [birth year] DOS: 04/25/2018 SUBJECTIVE: The patient has been noted with acute deterioration of the respiratory status. The patient with progressive worsening of the symptoms of shortness of breath and later noted change in mental status and hypoxemia. The patient has been starting the BiPAP, which has been used by the patient, could not noted respond to vocal commands. Decreased consciousness was noted. The patient's code status continue remains a DNR-CC arrest, no intubation and no CPR. The patient was also noted with hypotension rather hypothermia and currently started on hypothermia blanket. OBJECTIVE: VITAL SIGNS: For the patient, normal temperature. The patient's respiratory rate of 28, heart rate 70, blood pressure 121/42. Pulse oxygen saturation recorded as 70% saturation on the BiPAP. HEENT: Chronic obesity. NECK: Supple. CARDIOVASCULAR: S1, S2 audible. LUNGS: General reduction in breath sounds bilaterally. ABDOMEN: Soft and obese. EXTREMITIES: No new changes. IMPRESSION: 1. The patient with progressive worsening of the respiratory status with acute respiratory failure. At the present time, possibility of a new infection cannot be completely excluded. 2. Chronic obesity. 3. Suspected obstructive sleep apnea disorder, not assessed or treated in the outpatient setting. PLAN OF TREATMENT: Overall prognosis currently appears to be very poor. Continue current comfort measures. Hospice services consultation with the family member agreeable for that could be obtained. Assessment and management was discussed with Dr. De Leon as well. [place], [place] PROGRESS NOTE NAME: GURMEET TRAN UNIT #: [id number] ROOM: [facility] DOCTOR: MELBA MOYER MD BIRTHDATE: [birth year] MELBA PEREIRA MD CM:PNTRANS [id number] MELBA HERRERA MD 04/25/18 1631 interface
--- NOTE | ~2018-04-18 | PR ---
[place], [place] PROGRESS NOTE NAME: GURMEET TRAN [facility] #: [id number] UNIT #: [id number] ROOM: [facility] DOCTOR: BENITA DENG MD BIRTHDATE: [birth year] DOS: 04/23/2018 SUBJECTIVE: The patient is awake, alert, feeling better and asking for sleeping medication at night. OBJECTIVE: VITAL SIGNS: Blood pressure systolic ranging between 90-104, diastolic ranging between 40-53, afebrile, heart rate of 83 beats per minute, breathing normally. GENERAL APPEARANCE: The patient is alert and oriented x 3, in no visible distress, except for generalized weakness. HEENT AND NECK: Exam within normal limits. CARDIOVASCULAR SYSTEM: Heart rate is regular in rate and rhythm. S1 and S2 normally audible. LUNGS: Clear to auscultation. ABDOMEN: Soft, nontender. No obvious organomegaly. Bowel sounds are present. EXTREMITIES: Without significant cyanosis or edema. IMPRESSION: 1. New onset atrial fibrillation, heart rate has been controlled with digoxin. 2. Hypotension secondary to sepsis and pneumonia, improving with treatment with antibiotics. 3. Bilateral pneumonia and leukocytosis, treated with antibiotics, clinically improving. 4. Morbid obesity with BMI of 38. The patient is working with dietary. 5. Advance disability and failure to thrive. The patient to work with physical therapy. We are also taking bedsore precautions. 6. Chronic lower extremity lymphedema, improved with diuresis. 7. Acute systolic type congestive heart failure, improved with diuresis. 8. Acute exacerbation of chronic obstructive pulmonary disease and respiratory failure, improving with treatment, bronchodilators and antibiotics. BENITA DENG MD CM:PNTRANS [id number] BENITA DENG MD 04/23/18 1209 interface
--- NOTE | ~2018-04-18 | WRIGHTHP ---
[place], [place] PATIENT HISTORY AND PHYSICAL EXAM [facility]: [id number] UNIT #: [id number] ROOM: [facility] DOCTOR: BENITA DENG MD BIRTHDATE: [birth year] DOS: 04/18/2018 HISTORY OF PRESENT ILLNESS: The patient presented to the Emergency Department at [facility] today in acute respiratory failure with a DNR comfort care code status, but the family realized that they want the patient to be treated with mechanical ventilation at least for now and the patient was intubated and started on mechanical ventilation in the Emergency Department and to be admitted to ICU for further management. The patient with increased shortness of breath. The patient's breathing was shallow and labored at [facility] and was requiring 100% oxygen, 15 liters per minute and was cyanotic and unresponsive. In the ER, the patient was started on mechanical ventilation after intubation and stabilized. A central line was placed and his blood pressure improved to 120 systolic over 70 diastolic. No recent complaints of chest pains or any other symptoms. REVIEW OF SYSTEMS: RESPIRATORY: Increased shortness of breath. GASTROINTESTINAL: No nausea, vomiting, diarrhea, constipation. CARDIOVASCULAR: No chest pains or palpitations. FAMILY HISTORY: Noncontributory. HOME MEDICATIONS: Levothyroxine, bisoprolol, diltiazem. ALLERGIES: Known allergies to CORTICOSTEROIDS, PREDNISONE, CEPHALEXIN, SULFA, BACTRIM, CIPRO, PENICILLIN, QUINOLONES. PHYSICAL EXAMINATION: GENERAL APPEARANCE: The patient is sedated, intubated and on mechanical ventilation. VITAL SIGNS: Blood pressure 131/99, heart rate 67 beats per minute, respiratory rate 28 per minute, temperature 97.8 degrees Fahrenheit. HEENT AND NECK: Extraocular movements are intact. Sclerae are anicteric. Oral mucosa is moist and clean. No obvious facial weakness. Neck is supple without any lymphadenopathy. No thyromegaly. No JVD. No carotid arterial bruits. LUNGS: Show decreased breath sounds all over. CARDIOVASCULAR SYSTEM: Heart rate is regular in rate and rhythm. S1 and S2 normally audible. No significant murmur or any other abnormal cardiac sounds. ABDOMEN: Soft, nontender. No obvious organomegaly. Bowel sounds are present. No obvious herniation. Obese. EXTREMITIES: Without significant cyanosis. Warm to touch. Bilateral leg and pedal edema and chronic skin changes. CENTRAL NERVOUS SYSTEM: Alert and oriented x 3. Cranial nerves II-XII are intact. Speech is normal. The patient is able to move all extremities. Normal muscle strength. Deep tendon reflexes are equal on both sides. Plantars were downgoing. IMPRESSION: 1. The patient now unconscious, intubated and on mechanical ventilation for acute respiratory failure, to be admitted to ICU on mechanical ventilation and [place], [place] PATIENT HISTORY AND PHYSICAL EXAM NAME: GURMEET TRAN [facility] #: [id number] UNIT #: [id number] ROOM: [facility] DOCTOR: BENITA DENG MD BIRTHDATE: [birth year] blood gases to be performed and ventilator settings adjusted to try and keep a pH of close to 7.4 and oxygen saturation of more than 90%. The patient was started on IV antibiotics, but unable to give corticosteroids because of multiple drug allergies. The patient has multiple antibiotic allergies also and I am consulting Infectious Disease specialist to follow the patient. Fisher [place]og, Dr. England will apparently become available tomorrow for consult and has been consulted. For now, the patient is being stabilized in the ICU. 2. Leukocytosis, apparently secondary to pneumonia. 3. Acute exacerbation of chronic obstructive pulmonary disease resulting in respiratory failure along with pneumonia, being treated as mentioned above with bronchodilators, antibiotics. 4. Benign essential hypertension. Blood pressures to be monitored and treated with Cardizem. The patient had a hypotensive episode in the ER, but his blood pressures have normalized. 5. Hypothyroidism, replaced with thyroid supplements. We will place an NG tube for feeding and for medications. 6. Chronic lymphedema of the lower extremities, to be managed with compression socks. 7. Adult failure to thrive. We will take bedsore precautions and turn him every 2 hours and use an air mattress. 8. Morbid obesity with BMI of more than 40. The patient to be followed by Dietary. BENITA DENG MD CM:HISPHYS:PATIENT HISTORY AND PHYSICAL EXAMINATION [id number] BENITA DENG MD 04/21/18 0949 interface
--- NOTE | ~2018-04-18 | PR ---
[place], [place] PROGRESS NOTE NAME: GURMEET TRAN [facility] #: [id number] UNIT #: [id number] [facility]: [facility] DOCTOR: RANDALL HERRERA MD,MELBA BIRTHDATE: [birth year] DOS: 04/21/2018 PULMONARY CRITICAL CARE EVALUATION AND MANAGEMENT SUBJECTIVE: The patient was seen and examined on 04/21/2018. She has been noted on mechanical ventilator, currently sedation was given Diprivan 20 mcg/kg per minute infusion. She has been noted interactive with family members. The endotracheal tube and orogastric tube in place with the feeding was continued as well. The patient seemed to be tolerated. Diuretic therapy was continued for replenishment of the hypokalemia was done with the diuretics. The patient has not been noted any respiratory distress. She required vasopressor on various levels, she is currently getting 11 mcg per kilogram, body weight of vasopressor as Levophed. The family member was present at the bedside. OBJECTIVE: VITAL SIGNS: The patient showed temperature noted normal, respiratory rate recorded 14, same on mechanical ventilator, heart rate of 86-94 and blood pressure of 83/43-126/51. Intake of 3375 mL and output of 4176 mL with negative ____, recorded as 801 mL. Pulse oxygen saturation on 35% oxygen 94% saturation. HEENT: Head was atraumatic. The patient orally intubated, orogastric tube is in place. NECK: Supple. CARDIOVASCULAR: S1, S2 audible. LUNGS: Moderate decreased breath sounds noted in the lungs. There were no wheeze or crackles heard. ABDOMEN: Soft and obese. EXTREMITIES: The patient still noted with chronic lymphedema superimposed edema, which has been gradually decreased. VISIBLE SKIN: No lesions or rashes. CENTRAL NERVOUS SYSTEM: Mental status appeared to be normal. The patient with the reduction of sedation and sedation vacation. LABORATORY DATA: Arterial blood gas, pH of 7.45, pCO2 of 48, pO2 of 73. The culture of the endotracheal aspirate noted as normal cayla. Chest x-ray that was done this morning does not show evidence of pulmonary infiltration. Small basilar area of atelectasis noted. There were no visible pleural fluid. Endotracheal tube and the NG tube both noted in appropriate position. There was no evidence of pneumothorax which was suspected previously on the chest x-ray. CBC this morning, WBC count 12.8, hemoglobin 10.7, hematocrit 39.0 and platelet count of 401,000. IMPRESSION: 1. Anasarca, congestive heart failure, diastolic dysfunction. 2. The patient with acute respiratory failure with improvement in the hypoxemia. 3. Mild respiratory alkalosis, multifactorial secondary to diuretic and mechanical ventilation, iatrogenic combination. Alkalosis noted. Respiratory and metabolic. 4. Hyperkalemia related to diuretic therapy, potassium level today was noted at 3.2, BUN and creatinine remains normal. [place], [place] PROGRESS NOTE NAME: GURMEET TRAN UNIT #: [id number] ROOM: [facility] DOCTOR: RANDALL HERRERA MD,MELBA BIRTHDATE: [birth year] 5. Hypoalbuminemia as suspicion of severe protein-calorie malnutrition as well. 6. Debility and adult failure to thrive would be also suspected. PLAN OF MANAGEMENT: Continue diuretic therapy. Additional supplementation of potassium has been ordered intravenous via central line. The patient has been getting daily dose of potassium as well. The tidal volume has been decreased to 500 mL as well. Trial of CPAP 5, pressure support of 10, off sedation will be done for a couple of hours for the weaning purposes. The patient will be assessed for liberation of mechanical ventilation, so far, the ultrasound of the patient has told me that they do not want the patient to be reintubated in case of failure of extubation. Possible attempt of liberation from mechanical ventilator might be done tomorrow morning depends on further clinical improvement in your situation and the fluid overload. In the congestive heart failure. otal time in pulmonary critical care evaluation and management was 37 minutes. MELBA PEREIRA MD CM:PNTRANS [id number] MELBA HERRERA MD 04/21/18 1630 interface
--- NOTE | ~2018-04-18 | PR ---
[place], [place] PROGRESS NOTE NAME: GURMEET TRAN [facility] #: [id number] UNIT #: [id number] ROOM: [facility] DOCTOR: BENITA DENG MD BIRTHDATE: [birth year] DOS: 04/22/2018 SUBJECTIVE: The patient extubated this morning. She is on BiPAP. PHYSICAL EXAMINATION: GENERAL APPEARANCE: The patient is alert and oriented x 3, in no visible distress. Generalized weakness, obesity and some shortness of breath. VITAL SIGNS: Blood pressure 126/54, heart rate of 88 beats per minute, breathing 26 times per minute, afebrile. HEENT AND NECK: Exam within normal limits. CARDIOVASCULAR SYSTEM: Heart rate is regular in rate and rhythm. S1 and S2 normally audible. LUNGS: The patient with decreased breath sounds on lung auscultation. ABDOMEN: Soft, nontender. No obvious organomegaly. Bowel sounds are present. EXTREMITIES: Without significant cyanosis or edema. IMPRESSION: 1. Atrial fibrillation with rapid ventricular response with better controlled heart rates with digoxin. 2. Sepsis, hypotension, pneumonia and tachycardia, all improving. 3. Pneumonia and leukocytosis, improved with treatment with antibiotics. 4. Morbid obesity with BMI of 38. The patient to work with dietary. 5. Advanced adult failure to thrive. The patient now maintains a DNR arrest code status with no intubation. 6. Chronic lymphedema involving lower extremities, treated with leg elevation and compression socks. 7. Hypothyroidism, replaced with supplements. 8. Acute exacerbation of chronic obstructive pulmonary disease, improving with treatment of bronchodilators, antibiotics and corticosteroids. 9. Acute congestive heart failure, probably systolic type, improved with diuresis. BENITA DENG MD CM:PNTRANS [phone] BENITA DENG MD 04/22/18 184 interface
--- NOTE | ~2018-04-18 | PR ---
[place], [place] PROGRESS NOTE NAME: GURMEET TRAN UNIT #: [id number] ROOM: [facility] DOCTOR: BENITA DENG MD BIRTHDATE: [birth year] DOS: 04/20/2018 SUBJECTIVE: An 82-year-old female. PHYSICAL EXAMINATION: GENERAL APPEARANCE: The patient deeply sedated, intubated, on mechanical ventilation. She does open her eyes and follows basic directions, follows commands. VITAL SIGNS: Blood pressure 113/81, heart rate of 88 beats per minute, breathing 16 times per minute on mechanical ventilation. HEENT AND NECK: Exam within normal limits. CARDIOVASCULAR SYSTEM: Heart rate is regular in rate and rhythm. S1 and S2 normally audible. LUNGS: Clear to auscultation. ABDOMEN: Soft, nontender. No obvious organomegaly. Bowel sounds are present. EXTREMITIES: Without significant cyanosis or edema. IMPRESSION: 1. The patient with acute respiratory failure, intubated and on mechanical ventilation. 2. Acute congestive heart failure, acute over chronic diastolic type congestive heart failure. The patient is being diuresed by Dr. England. 3. Morbid obesity. The patient to work with dietary. 4. Acute exacerbation of chronic obstructive pulmonary disease with acute over chronic respiratory failure. The patient on mechanical ventilation. 5. Benign essential hypertension, presently the patient is hypotensive and Cardizem has been stopped. 6. Hypothyroidism, treated with supplements. 7. Chronic lymphedema of the lower extremities, treated with compression socks and leg elevation. 8. Adult failure to thrive. We are taking bedsore precautions, using air mattress and turning the patient every 2 hours. 9. Morbid obesity with BMI of 38. The patient to work with dietary. 10. Bilateral lower lobe pneumonia, being treated with antibiotics, also being followed by Infectious Disease specialist. [place], [place] PROGRESS NOTE NAME: GURMEET TRAN UNIT #: [id number] ROOM: [facility] DOCTOR: BENITA DENG MD BIRTHDATE: [birth year] BENITA DENG MD CM:PNTRANS [id number] BENITA DENG MD 04/21/18 0259 interface
--- NOTE | ~2018-04-18 | PR ---
[place], [place] PROGRESS NOTE NAME: GURMEET TRAN [facility] #: [id number] UNIT #: [id number] ROOM: [facility] DOCTOR: BENITA DENG MD BIRTHDATE: [birth year] DOS: 04/25/2018 SUBJECTIVE: The patient is awake, alert, appears oriented, wearing BiPAP mask. OBJECTIVE: VITAL SIGNS: Blood pressure 121/42, breathing 28 times per minute, heart rate of 78 beats per minute, afebrile. GENERAL APPEARANCE: Generalized weakness. The patient is alert and oriented x 3, in no visible distress. HEENT AND NECK: Exam within normal limits. CARDIOVASCULAR SYSTEM: Heart rate is regular in rate and rhythm. S1 and S2 normally audible. LUNGS: Decreased breath sounds. ABDOMEN: Soft, nontender. No obvious organomegaly. Bowel sounds are present. EXTREMITIES: Significant leg and pedal edema, which is chronic. IMPRESSION: 1. Patient with borderline elevated troponin level secondary to hypoxic respiratory failure. 2. Paroxysmal atrial fibrillation, heart rate is being controlled. 3. Acute over chronic respiratory failure with persistent hypoxemia. Patient's son has decided on consulting hospice for end of life care because patient not improving. 4. Bilateral chronic leg edema. 5. Hypotension from heart failure. Echocardiogram had showed normal left ventricular ejection fraction. 6. Pneumonia, urinary tract infection and sepsis, all treated with antibiotics. 7. Advanced adult failure to thrive. We are taking bedsore precautions. 8. Morbid obesity with BMI of 38. Patient worked with Dietary. BENITA DENG MD CM:PNTRANS [id number] BENITA DENG MD 04/26/18 0106 interface
--- NOTE | ~2018-04-18 | PR ---
[place], [place] PROGRESS NOTE NAME: GURMEET TRAN UNIT #: [id number] ROOM: [facility] DOCTOR: TA RAGLAND MD BIRTHDATE: [birth year] DOS: 04/21/2018 CARDIOLOGY PROGRESS NOTE SUBJECTIVE: The patient was seen at her bedside today, 04/21/2018, for followup of acute on chronic diastolic congestive heart failure and atrial fibrillation. She is still on the ventilator, but is awake and alert. She denies chest pain. She would like to have her hands untied. PHYSICAL EXAMINATION: VITAL SIGNS: Today, her pulse is 95 and regular, blood pressure is 115/52, but she is on Levophed by infusion. She is afebrile. HEENT: Normocephalic and atraumatic. Extraocular muscles are intact. Sclerae are clear. Pupils equal, round and reactive to light. The oral mucosa is moist. Her tongue is midline. NECK: Supple. I could not see jugular distention. Carotids are full. LUNGS: Respirations are per ventilator. She has decreased breath sounds at the bases. HEART: Has a distant tones with a regular rhythm. She has a fourth heart sound, but no third heart sound or murmur. ABDOMEN: Soft. EXTREMITIES: Show marked edema. LABORATORY DATA: Hemoglobin is 10.7, white count 12,800, platelet count 401,000. Sodium 145, potassium 3.2, chloride 103, CO2 of 34, BUN 19, creatinine 0.48. The patient is in negative fluid balance, but she is being diuresed gradually because of marginal pressures. IMPRESSION: 1. Borderline elevation of troponin due to hypoxic respiratory failure. 2. Paroxysmal atrial fibrillation. The patient converted to sinus rhythm overnight. 3. Respiratory failure, on ventilator. 4. History of hypertension. 5. Sepsis. 6. Chronic lymphedema. PLAN: We will check a digoxin level and continue to monitor her heart rate and blood pressure. There is no family at the bedside at this time, so discussions regarding long-term anticoagulation will be done later, but for now she is on full dose Lovenox. We thank Dr. De Leon for asking our advice regarding her care. [place], [place] PROGRESS NOTE NAME: GURMEET TRAN UNIT #: [id number] ROOM: [facility] DOCTOR: AT RAGLAND MD BIRTHDATE: [birth year] TA RAGLAND MD CM:PNTRANS [id number] TA RAGLAND MD 04/21/18 1058 interface
--- NOTE | ~2018-04-18 | EKG ---
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
--- NOTE | ~2018-04-18 | PR ---
[place], [place] PROGRESS NOTE [id number] #: [id number] ROOM: [facility] DOCTOR: ISH MACE,BENITA Harper BIRTHDATE: [birth year] DOS: 04/24/2018 IMPRESSION: 1. The patient with acute respiratory failure secondary to acute exacerbation of chronic obstructive pulmonary disease and pneumonia, is off mechanical ventilation, but feeling worse today as compared to yesterday. The patient remains on BiPAP and is having difficulty in maintaining her saturations to 90%, she dropped to 80% and remains in the ICU. 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 2. Acute over chronic diastolic type congestive heart failure, treated with diuresis. 3. Chronic obesity. The patient to work with Dietary. 4. Paroxysmal atrial fibrillation, heart rate is being controlled with digoxin. 5. Hypotension secondary to sepsis, pneumonia, and congestive heart failure. She is being followed very closely in the ICU. 6. Advance disability and failure to thrive. 7. Chronic bilateral lower extremity edema, improved with diuresis. 8. Acute exacerbation of chronic obstructive pulmonary disease, being treated with bronchodilators, antibiotics, oxygen. The patient's prognosis is poor and she is not recovering with full treatment. 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 BENITA DENG MD CM:PNTRANS [id number] BENITA DENG MD 04/25/18 1316 interface
--- NOTE | ~2018-04-18 | CON ---
[place], [place] REPORT OF CONSULTATION NAME: GURMEET TRAN [facility] #: [id number] UNIT #: [id number] ROOM: [facility] [place] DOCTOR: RANDALL HERRERA MD,MELBA BIRTHDATE: [birth year] DOS: 04/19/2018 PULMONARY CRITICAL CARE, EVALUATION AND MANAGEMENT CONSULTATION REQUESTED BY: Dr. De Leon. REASON FOR CONSULTATION: For assessment respiratory failure management. HISTORY OF PRESENT ILLNESS: This is an 82-year-old white female patient who has been noted with prolonged hospitalization intermittently for the past several months. The patient is in the hospital in [place], [place], has been assessed by the application processor. The patient had been transferred to [facility], later on to [facility]. The patient was noted in usual state of health, as reported by the son who has assisted in the history for this patient. The patient was noted with oxygen desaturation upon standing with minimal exertion and noted most of the time bed bound. The patient has been brought to the hospital and she was intubated and started on mechanical ventilation as the patient was noted change in mental status with acute hypercapnia. She has been currently noted on mechanical ventilation. The patient is unable to give me any history. Mental status has been reported to normal per nursing staff. She has been getting intravenous fluid supplementation as well and also receiving intravenous norepinephrine for the medical management of the hypertension. Currently, the patient is getting fluid as 150 mL of half normal saline per hour. She had received about 7 liters of intravenous fluids in the last 24 hours of hospitalization. Currently, the patient noted on mechanical ventilation, assist control, volume control, mechanical ventilation. She has not been reported any symptoms of hemoptysis, fever, or other symptoms prior to the hospitalization. REVIEW OF SYSTEMS: Could not be completed since the patient intubated, noted on mechanical ventilation. PAST MEDICAL HISTORY: Past medical history that has been known to me for the patient from the past as well is: 1. History of chronic advanced end-stage COPD. 2. Chronic hypoxic respiratory failure, use of oxygen. 3. Permanent atrial fibrillation. 4. History of past intermittent epistaxis. 5. Morbid obesity. 6. Chronic lymphedema of the lower extremities. 7. Decreased mobility secondary osteoarthritis and other medical illnesses. 8. History of osteopenia. 9. Essential hypertension. 10. Suspicion of obstructive sleep apnea disorder, but the patient has not been assessed as per the patient's son. PAST SURGICAL HISTORY: 1. Reported as cataract extraction, lens implantation. 2. Bilateral breast implants and then removal. 3. Ablation of the abnormal tract in the heart for the management of atrial [place], [place] REPORT OF CONSULTATION NAME: GURMEET TRAN UNIT #: [id number] ROOM: [facility] [place] DOCTOR: MELBA MOYER MD BIRTHDATE: [birth year] fibrillation. 4. Hemorrhoidectomy. 5. Hysterectomy. 6. Tonsillectomy. SOCIAL HISTORY: The patient is currently . She was living in the nursing facility. One of the son recently . The patient does have a living son and a daughter. She has been noted tobacco use as a younger age, smoked up to 3 packs of cigarettes per day that was discontinued about 26 years ago as per son. FAMILY HISTORY: The patient's father with complication of alcohol use and pneumonia at the age 3636 years old. Mother at 94 years of natural causes and also known with history of COPD. CURRENT MEDICATIONS: Administered was noted use of aspirin, Protonix, levothyroxine, bisoprolol fumarate, norepinephrine, DuoNeb, Zithromax, meropenem, vancomycin, Versed, and combination with propofol. The patient is also receiving the chlorhexidine 15 mL b.i.d. ALLERGIES: NOTED SEVERAL ALLERGIES THAT INCLUDES REPORTED CORTICOSTEROIDS, SOLU-MEDROL, FELDENE, KEFLEX, BACTRIM, CIPRO, AMOXICILLIN, LEVAQUIN, OMNICEF, AND MIRALAX. PHYSICAL EXAMINATION: GENERAL: An 82-year-old elderly female patient currently intubated on mechanical ventilation, sedated. VITAL SIGNS: Height of 5 feet 5 inches, weight of 228 pounds, BMI 37.9 recorded by the nursing staff. Blood pressure noted fluctuating ranging between 78/52-101/63. Temperature for the patient noted as normal since admission. The respiratory rate of the patient was recorded 14 and same on the mechanical ventilator. Pulse oxygen 40% oxygen 96% saturation recorded at the bedside. The assist control, volume control, mechanical ventilation. Intake for the patient recorded as 4830 mL output 700 mL, positive more than 4 liters. HEENT: The patient is orally intubated. She has been noted some secretion, which has been suctioned from the throat related to the mild nasal trauma resulting from the NG tube insertion. Currently, the patient Orogastric tube is in place. Head was atraumatic. CARDIOVASCULAR SYSTEM: S1, S2 is audible. LUNGS: Noted moderate decreased breath sounds in the lungs bilaterally. There are no crackles. Occasional wheezing. ABDOMEN: Soft and obese. EXTREMITIES: Shows general anasarca picture and congestive heart failure, findings chronic lymphedema of the lower extremities as well. VISIBLE SKIN: No lesions or rashes. CENTRAL NERVOUS SYSTEM: Could not be examined. Mental status has been reported to be coping per nursing staff. LABORATORY DATA: Arterial blood gas on 04/18/2018 on admission pH of 7.14, pCO2 124, BUN 12 on 6 liter nasal cannula supplementation oxygen. The arterial blood [place], [place] REPORT OF CONSULTATION NAME: GURMEET TRAN UNIT #: [id number] ROOM: [facility] [place] DOCTOR: RANDALL HERRERA MD,[facility] BIRTHDATE: [birth year] gas that was done 40% oxygen assist control, volume control, pH of 7.42, pCO2 of 50, pO2 of 88.1. Urine culture was noted with light growth of gram-negative bacilli, taken on admission. CMP that was done on 04/18/2018, BUN 31, creatinine normal, glucose 113, CO2 was 39. Outpatient BMP, BUN normal, creatinine was normal. CO2 of 40. BMP this morning, potassium of 3.0, sodium 143. CO2 of 36. BUN 28, creatinine normal, glucose 144. The review of the radiology data, chest x-ray shows small bilateral pleural fluid and finding of congestive heart failure because of the morbid obesity, unable to exactly assess the patient's underlying lung parenchyma with the limitation. Does not appear to have a gross area of pulmonary consolidation or congestive heart failure findings will be suspected. IMPRESSION: 1. The patient will be admitted to the hospitalist. The patient noted change in mental status. 2. Acute on chronic severe hypercapnic and hypoxemic respiratory failure secondary to congestive heart failure with systolic or diastolic dysfunction at this time was unknown. 3. The patient with anasarca picture was noted as well. 4. Hypertension, most likely multifactorial. 5. Possibility of urinary tract infection. 6. Question of a pneumothorax reported on chest x-ray done this morning, not clearly visible by the radiology reports shows possibility of a small right apical pneumothorax. NG tube and endotracheal tube were both noted in proper position. 7. Morbid obesity with a strong suspicion of obstructive sleep apnea disorder. 8. Severe hypokalemia, related to medications as well. 9. Hypothyroidism. 10. Decreased mobility. 11. Frequent hospitalization for chronic obstructive pulmonary disease reported in the past several months, as per son. The medical record were not available. PLAN OF TREATMENT: The patient will be continued on ventilator bundle management. She was started on intravenous Lasix 40 mg b.i.d. Aggressive supplementation of potassium with 20 mEq potassium given intravenously, had a potassium level at about 6:00 p.m. and then further replenishment of the potassium was given orally and intravenous accordingly. Monitor metabolic alkalosis, titrate Levophed for the patient, maintain a mean arterial pressure of 65 or greater. Follow up chest x-ray at this time. Clinical assessment and management of the patient will be continued. Deep venous thrombosis prophylaxis would be given in the form of the anticoagulation. The patient is getting multiple broad spectrum intravenous antibiotics. She has been assessed by the Infectious disease specialist. Follow the recommendation of change in antibiotics based on their assessment. Overall prognosis of the patient appeared to be very poor in the long-term because of frequent hospitalization for COPD with high mortality within one year, discussed with the patient's son. The patient's code status has been listed as a comfort care, code status was changed to intubation and mechanical ventilation. However, the patient specifically as noted sedated. The son of the patient wished no CPR to be done [place], [place] REPORT OF CONSULTATION NAME: GURMEET TRAN UNIT #: [id number] ROOM: [facility] [place] DOCTOR: RANDALL HERRERA MD,[facility] BIRTHDATE: [birth year] in case of cardiac arrest. The discussion by the code status, further advanced directives will be continued by family members. He does understand the patient ongoing issue, which has been noted quite critical and the patient's overall prognosis. He will be discussing this with his sister. Monitor culture results for this. Usual care. Supportive plan of therapy and management, plan of care. Total time in pulmonary critical care evaluation and management today was 45 minutes. MELBA PEREIRA MD CM:CONSTR:REPORT OF CONSULTATION 1736 11/27/18 0852 interface
--- NOTE | ~2018-04-18 | PR ---
[place], [place] PROGRESS NOTE NAME: GURMEET TRAN [facility] #: [id number] UNIT #: [id number] ROOM: [facility] DOCTOR: TA RAGLAND MD BIRTHDATE: [birth year] DOS: 04/23/2018 CARDIOLOGY PROGRESS NOTE SUBJECTIVE: The patient was seen at her bedside today in the Intensive Care Unit for followup of newly documented atrial fibrillation and hypotension. She is an 82-year-old woman who was admitted to the hospital on 04/18/2018 with sepsis, pneumonia, urinary tract infection and acute encephalopathy. She did develop respiratory failure and required intubation. She was extubated on 04/22/2018. Today, she is awake and alert and eating small quantities. Unfortunately, her blood pressure remains marginal with significant diastolic hypotension despite pressors. Her mean blood pressure on Levophed at this point is 74 mmHg with a systolic of 130. She did have an echocardiogram on 04/21/2018 which showed normal left ventricular size, wall motion and function with an ejection fraction greater than 55%. Diastole could not be fully assessed. The aortic valve was functioning normally. There was no evidence for aortic stenosis. There was only physiologic mitral insufficiency. There was no apparent pulmonary hypertension. PHYSICAL EXAMINATION: VITAL SIGNS: Today, her pulse is 86 with frequent premature beats. Blood pressure is 120/50 on Levophed infusion. She has temperature of 99.1. She weighs 103.4 kilograms with a body mass index of 37.9. NECK: Supple. She has no obvious jugular distention. Carotids are full. LUNGS: Respirations are unlabored. She has decreased breath sounds at the bases. HEART: Has a regular rhythm with frequent premature beats. She has a fourth heart sound, but no third heart sound. ABDOMEN: Obese, but otherwise benign. EXTREMITIES: Do show trace edema with underlying lymphedema. Her monitor shows sinus rhythm with frequent PACs. IMPRESSIONS: 1. Borderline elevation of troponin due to hypoxic respiratory failure. 2. Paroxysmal atrial fibrillation. 3. Respiratory failure, improving. 4. Pneumonia and urinary tract infection with sepsis. 5. Chronic lymphedema. PLAN: We will continue to observe her in the hospital in the ICU and gradually wean her from her digoxin. We will check a digoxin level in the morning. No other cardiac workup is planned at this time. I thank Dr. De Leon for asking our advice regarding her care. [place], [place] PROGRESS NOTE NAME: GURMEET TRAN UNIT #: [id number] ROOM: [facility] DOCTOR: OBIE MACE,TA BIRTHDATE: [birth year] TA RAGLAND MD CM:PNTRANS [id number] TA RAGLAND MD 04/28/18 0626 interface
--- NOTE | ~2018-04-18 | CON ---
[place], [place] REPORT OF CONSULTATION NAME: [facility] #: [id number] UNIT #: [id number] ROOM: [facility] DOCTOR: RANDALL HERRERA MD,MELBA BIRTHDATE: [birth year] DOS: 04/22/2018 PULMONARY AND CRITICAL CARE EVALUATION AND MANAGEMENT HISTORY OF PRESENT ILLNESS: The patient was seen and examined on 04/22/2018. The patient has been noted fully awake and alert. She has completed 2 hours of trial of CPAP yesterday successfully. The patient's arterial blood gas reviewed. The patient was noted with well-maintained oxygenation. The patient has not been reported any symptoms of hemodynamic stability, still requires use of vasopressor with gradual reduction of the vasopressin use. Norepinephrine was continued. She has been continued on feeding from the orogastric tube, which has been well tolerated. She remains off sedation this morning and started back again on the CPAP trial, which has been 24 hours or more. The two arterial blood gases done for the patient after every 2 hours on the CPAP of 5, pressure support of 10. She was noted fully awake and alert. The code status has been discussed with the patient in detail. The patient was following vocal commands appropriately. PHYSICAL EXAMINATION: VITAL SIGNS: Review of the vital signs of the patient show temperature noted normal, respiratory rate recorded as 25-15, heart rate of 83, blood pressure 124/57-110/59. The intake for the patient of 1850 mL, output 2200 mL, negative 350 mL. Pulse oxygen saturation 40% oxygen, 95% saturation on the CPAP more than mechanical ventilation. HEENT: The patient is intubated. Orogastric tube and endotracheal tube both remain in place. NECK: Supple. Mild obesity. CARDIOVASCULAR: S1, S2 is audible. LUNGS: Noted [id number] decreased breath sounds bilaterally. ABDOMEN: Soft, nontender. EXTREMITIES: Chronic edema with superimposed mild edema, which has been gradually improving. SKIN: No visible skin lesions or rashes. CENTRAL NERVOUS SYSTEM: The patient is able to move extremities with the vocal commands, but noted generalized weakness. Mental status noted fully awake, alert, oriented at this time. Assessment done at the bedside. LABORATORY DATA: The arterial blood gas yesterday on the CPAP trial, pH of 7.41, pCO2 of 57, pO2 of 77. Arterial blood gas this morning, pH of 7.34, pCO2 of 69, pO2 of 86 with CPAP of 5, pressure support of 10. Repeat blood gases further on 4 hours of CPAP trial with pH of 7.35, pCO2 of 67, pO2 of 94 with 40% oxygen at that time. The urine for strep antigen was noted as negative. CMP this morning, BUN 18, creatinine was normal, glucose 104, CO2 of 39. Albumin 1.7. IMPRESSION: 1. The patient who has been currently noted with acute severe hypoxic respiratory failure with hypercapnia with chronic hypoxic respiratory failure, hypercapnia. 2. Acute congestive heart failure, diastolic dysfunction. [place], [place] REPORT OF CONSULTATION NAME: GURMEET TRAN UNIT #: [id number] ROOM: [facility] DOCTOR: RANDALL HERRERA MD,MELBA BIRTHDATE: [birth year] 3. Resolving metabolic alkalosis. 4. Improving respiratory alkalosis. 5. Morbid obesity. 6. Severe debility with frequent hospitalization requiring ventilatory support in the form of the BiPAP and the mechanical ventilation. There was no evidence of acute active infection at this time. 7. Suspicion of obstructive sleep apnea disorder. PLAN OF MANAGEMENT: The code status has been discussed with the patient. The patient's code status has been determined and agreed by the patient and the family members as DNR-CC arrest, no intubation, no CPR. She will be started on the BiPAP as agreed by the patient post-liberation from mechanical ventilation. She was started on the BiPAP. The patient appeared to be very comfortable on that, maintaining good oxygen saturation. Orogastric tube has been removed. She will be kept n.p.o. for the next 24 hours. Reassessment of the patient for the feeding and swallowing will be done after that. Continue diuretic therapy. The hypokalemia has been corrected completely with current supplementation of the potassium. Continue other supportive therapy, plan of management, care plan of treatment and therapies and care. DVT prophylaxis and/or ventilator bundle management was continued until liberation from mechanical ventilation. Total time in pulmonary and critical care evaluation and management was 38 minutes. MELBA PEREIRA MD CM:CONSTR:REPORT OF CONSULTATION 1328 04/22/18 4705 interface
--- NOTE | ~2018-04-18 | PR ---
[place], [place] PROGRESS NOTE NAME: GURMEET TRAN [facility] #: [id number] UNIT #: [id number] ROOM: [facility] DOCTOR: TA RAGLAND MD BIRTHDATE: [birth year] DOS: 04/25/2018 CARDIOLOGY PROGRESS NOTE SUBJECTIVE: The patient was seen at her bedside in the intensive care unit. She is currently on BiPAP and breathing easily. She is lying flat. She is awake and alert. She is noted to be fairly hypothermic today. PHYSICAL EXAMINATION: VITAL SIGNS: Pulse is 78 and regular, blood pressure is 121/42. She is afebrile. She weighs 103.4 kg and has a body mass index of 37.9. Her current temperature is 96.6. HEENT: Normocephalic and atraumatic. Extraocular muscles are intact. NECK: Supple. I could not see jugular distention. Carotids are full without bruits. LUNGS: Respirations were unlabored on the CPAP device. Her lungs had decreased breath sounds bilaterally, but I heard no wheezes or rales. HEART: Had a regular rhythm with an S4 gallop. ABDOMEN: Obese. EXTREMITIES: Do show some pitting along with lymphedema. LABORATORY DATA: Hemoglobin yesterday was 9.3, white count 8700, platelet count 297,000. Blood gas yesterday showed a pH of 7.369 with a pCO2 of 69.3 and a pO2 of 110, bicarb was 39.5. She has not had electrolytes drawn for 2 days. Her most recent digoxin level yesterday was 1.53. Her most recent TSH was on 04/07/2018 and was markedly elevated at 14.2. A chest x-ray yesterday showed moderate bibasilar atelectasis, which had worsened compared to April 21, fluid overload was felt to be the cause. IMPRESSION: 1. Hypotension due to sepsis. The patient's blood pressure today is normal without pressors. 2. Paroxysmal atrial fibrillation. The patient remains in sinus rhythm and is on subcutaneous full dose Lovenox for stroke prophylaxis as well as DVT prophylaxis. 3. Chronic hypercarbic respiratory failure. The patient has tolerated extubation, but still gets breathless and requires BiPAP on multiple occasions. 4. Lymphedema. 5. Pneumonia and urinary tract infections with sepsis, which appear to be well controlled. 6. Hypothyroidism. 7. Hypothermia. PLAN: We will repeat laboratory studies including a CBC, comprehensive metabolic profile, TSH and digoxin level today. We will switch her back to IV diuretics for the time being and monitor her blood pressure carefully. She remains critically ill and will require close observation and monitoring. As I stated previously when I spoke to her son, I told him that all changes in her status are going to be very gradual especially with her degree of hypothyroidism. [place], [place] PROGRESS NOTE NAME: GURMEET TRAN [place] UNIT #: [id number] ROOM: [facility] DOCTOR: TA RAGLAND MD BIRTHDATE: [birth year] We thank the hospitalist physicians for asking our advice regarding her care. TA RAGLAND MD CM:PNTRANS [id number] TA RAGLAND MD 04/26/18 0014 interface
--- NOTE | ~2018-04-18 | PR ---
[place], [place] PROGRESS NOTE NAME: GURMEET TRAN UNIT #: [id number] ROOM: [facility] DOCTOR: MELBA MOYER MD BIRTHDATE: [birth year] DOS: 04/24/2018 SUBJECTIVE: The patient has been doing very well. The patient has been eating orally, but the amount of calories consumed are still not noted, optimal. Denies symptoms of fever or chills. There were no symptoms of hemoptysis. The cough has been reported mild by the patient. There were no symptoms of acute shortness of breath. The patient may fully awake and alert. PHYSICAL EXAMINATION: VITAL SIGNS: Normal temperature, respiratory 23-14, heart rate 76, blood pressure 100/55. Pulse oxygen saturation recorded on 40% with the BiPAP 99%, with the nasal cannula is 93% saturation. HEENT: Chronic obesity. NECK: Supple. CARDIOVASCULAR: S1 and S2 audible. LUNGS: The patient was noted without any wheeze or crackles at the present time. Breaths are noted lxfh-by-iyvhnbnane diminished. ABDOMEN: Soft and obese. EXTREMITIES: Shows resolving edema progressively. LABORATORY DATA: WBC count normal. Hemoglobin 9.3 and platelet count normal. The digoxin level 1.53. Arterial blood gas this morning pH of 7.36, pCO2 of 69 and pO2 of 110. IMPRESSION: 1. The patient has stable respiratory status with acute respiratory failure, which has been improving progressively with current medical management. 2. Acute congestive heart failure with diastolic dysfunction. 3. Chronic obesity. PLAN OF TREATMENT: No change in pulmonary standpoint, the patient has been improving as expected. She still require significant care. Consideration may be given for long-term acute care facility admission. However, the patient at this time still not noted optimal improvement, to be transferred to long term facility. [place], [place] PROGRESS NOTE NAME: GURMEET TRAN UNIT #: [id number] ROOM: [facility] DOCTOR: MELBA MOYER MD BIRTHDATE: [birth year] MELBA PEREIRA MD CM:PNBERTHA [id number] MELBA HERRERA MD 04/24/18 1226 interface
[2018-04-18 10:22] LABS: ABG BASE EXCESS 7.5 mmol/L (-2.0-2.0); ABG HCO3 41.5 mmol/l (22-26); ABG O2 SATURATION 99.8 % (95-97)
--- NOTE | 2018-04-18 10:31 | NUR ---
PLACED ON 50% VENTURI MASK BY RESPIRATORY.
[2018-04-18 10:37] LABS: ARTERIAL BLOOD GAS PH 7.146 (7.35-7.45)
--- NOTE | 2018-04-18 10:51 | NUR ---
SATS ARE DROPPING. SHE IS 84% ON 50% VENTI MASK. DR MAN IN TO SPEAK WITH HER SON. HE IS CALLING HIS SISTER TO DECIDE WHAT THEY WOULD LIKE DONE FOR THE PT. CURRENTLY SHE IS BEING PLACED ON BIPAP PER SONS WISHES UNTIL SON CAN DISCUSS CODE STATUS WITH HIS SISTER.
[2018-04-18 11:01] LABS: HEMATOCRIT 49.2 % (37.0-47.0); HEMOGLOBIN 12.7 g/dl (12.0-16.0); MEAN CELL VOLUME 89.6 fl (81.0-99.0); MEAN CORPUSCULAR HGB 23.1 pg (27.0-31.0); MEAN CORPUSCULAR HGB CONC 25.8 g/dl (33.0-37.0); MEAN PLATELET VOLUME 11.6 fl (9.6-12.3); PLATELET COUNT AUTOMATED 621 10*3/uL (130-400); RED BLOOD COUNT 5.49 10*6/uL (4.10-5.10); RED CELL DISTRI WIDTH 17.2 % (0-14.5)
[2018-04-18 11:16] LABS: ALBUMIN 2.9 gm/dl (3.1-4.5); ALKALINE PHOSPHATASE 79 U/L (45-117); BUN 31 mg/dl (7-24); CHLORIDE 100 mmol/L (98-107); LIPASE 92 U/L (73-393); POTASSIUM 4.7 mmol/L (3.5-5.1); SGOT/AST 12 IU/L (3-35); SGPT/ALT 14 U/L (12-78); SODIUM 145 mmol/L (136-145); TOTAL PROTEIN 7.1 gm/dL (6.4-8.2)
[2018-04-18 11:27] LABS: TOTAL CELLS COUNTED 100 #CELLS
--- NOTE | 2018-04-18 11:27 | NUR ---
INTUBATED WITH 7.5 ET TUBE. SECURED 23 CM AT THE LIP.
[2018-04-18 11:28] LABS: POLYCHROMASIA SLIGHT; TOXIC GRANULATION SLIGHT
[2018-04-18 11:30] LABS: PLATELET SUFFICIENCY HIGH (NORMAL)
--- NOTE | 2018-04-18 12:36 | NUR ---
PROPOFOL DECREASED TO 20 YULY D/T BP 70/44. PT IS RESTING QUIETLY.
--- NOTE | 2018-04-18 14:15 | NUR ---
LEVOPHED GTT INCREASED TO 20MCG/MIN.
--- NOTE | 2018-04-18 14:16 | NUR ---
ON ARRIVAL TO [facility] PT'S BLOOD PRESSURE 58/P. DR DENG NOTIFIED AND ORDER FOR CARDIOLOGY CONSULT RECEIVED AND 1LITER OF NS BOLUS NOW.
--- NOTE | 2018-04-18 14:23 | NUR ---
BP 140 SYSTOLIC WITH LEVOPHED GTT AT 20MCG/MIN AND NS BOLUS INFUSING. ANSWERING SERVICE FOR [facility] NOTIFED OF NEW CONSULT.
--- NOTE | 2018-04-18 15:44 | NUR ---
DR FIGUEREDO NOTIFIED OF NEW CONSULT AND IN TO SEE PT.
[2018-04-18 16:10] LABS: BILIRUBIN NEGATIVE (NEGATIVE); BLOOD NEGATIVE (NEGATIVE); CLARITY SL CLOUDY (CLEAR); COLOR YELLOW (YELLOW); GLUCOSE NEGATIVE (NEGATIVE); KETONE TRACE (NEGATIVE); LEUKO ESTERASE TRACE (NEGATIVE); NITRITE POSITIVE (NEGATIVE); PH 5.5 (5.0-9.0); SPECIFIC GRAVITY 1.025 (1.005-1.030)
[2018-04-18 16:21] LABS: BACTERIA 4+; WBC 31-40 wbc/hpf (0-5)
--- NOTE | 2018-04-18 17:25 | NUR ---
DR DENG AWARE OF PT'S WOUNDS. NEW ORDERS RECEIVED.
--- NOTE | 2018-04-18 17:45 | NUR ---
DR DOVER PLACED ART LINE IN PT'S LEFT WRIST. PT TOLERATED WELL.
--- NOTE | 2018-04-18 17:47 | NUR ---
PT SYSTOLIC BP 150-160 VIA ART LINE. LEVOPHED GTT TITRATED DOWN TO 12MCG/MIN AT THIS TIME. WILL CONTINUE TO CLOSELY MONITOR.
--- NOTE | 2018-04-18 20:40 | NUR ---
1943 RESTING IN BED WITH HOB ELEVATED. SIDE RAILS UP X'S 2. NPO. ORAL AND EYE CARE DONE. ET SECURE TO VENT. SUCTIONED ORALLY AND VIA ET. SEE INTERVENTION SCREEN. RIJ MLC INTACT. IV FLUIDS INFUSING WELL. DIPRIVAN GTT CONT FOR SEDATION. LEVOPHED CONT. SEE INTERVENTION SCREEN FOR Q15MIN BP'S. ART LINE INTACT LR SITE. IS POSITIONAL. USING BP CUFF FOR BP'S. WRIST RESTRAINTS INTACT BILATERALLY. CIRUCLATION ADEQUATE. BENAVIDEZ PATENT AND DRAINING CLEAR YELLOW URINE. MOVES FEET ABOUT AT TIMES.
--- NOTE | 2018-04-18 23:30 | NUR ---
PT FIO2 TURNED DOWN FROM 80% T0 70%
[2018-04-19] VITALS (95 sets, daily range): BP systolic 69–162; BP diastolic 40–78
--- NOTE | 2018-04-19 00:20 | NUR ---
COMPLETE BED BATH GIVEN AND LINENS CHANGED. REPOSITIONED. ORAL AND EYE CARE DONE. LEVOPHED GTT CONT.
--- NOTE | 2018-04-19 03:15 | NUR ---
PT FIO2 TURNED DOWN FROM 50% TO 40%
[2018-04-19 05:12] LABS: BUN 28 mg/dl (7-24); CHLORIDE 101 mmol/L (98-107); CREATININE 0.55 mg/dL (0.55-1.02); SODIUM 143 mmol/L (136-145)
[2018-04-19 06:13] LABS: BASO # 0.1 10*3/uL (0.0-0.1); BASO % 0.4 % (0.0-1.0); EOS # 0.3 10*3/uL (0.0-0.4); EOS % 1.6 % (1.0-4.0); LYMPH # 1.2 10*3/uL (1.3-4.4); LYMPH % 6.9 % (27.0-41.0); MEAN CORPUSCULAR HGB 22.8 pg (27.0-31.0); MEAN CORPUSCULAR HGB CONC 26.9 g/dl (33.0-37.0); MEAN PLATELET VOLUME 11.6 fl (9.6-12.3); MONO # 1.2 10*3/uL (0.1-1.0); MONO % 6.6 % (3.0-9.0); NEUT % 83.2 % (47.0-73.0); PLATELET COUNT AUTOMATED 503 10*3/uL (130-400); RED BLOOD COUNT 4.56 10*6/uL (4.10-5.10); RED CELL DISTRI WIDTH 17.7 % (0-14.5)
--- NOTE | 2018-04-19 06:14 | NUR ---
0600 REMAINS ADEQUATELY SEDATED ON DIPRIVAN GTT. LEVOPHED GTT CONT. IV FLUIDS CONT AT 150CC/HR. BENAVIDEZ PATENT. PULSE OX 99% ON 40% FIO2 VIA VENT. EDEMA NOTED OF BILATERAL HANDS. ELEVATED ON PILLOWS. SMALL SCRATCHES NOTED ON CHEST WHEN BATHING. NO DISTRESS NOTED. CONDITION GUARDED.
[2018-04-19 06:30] LABS: HEMATOCRIT 38.7 % (37.0-47.0); HEMOGLOBIN 10.4 g/dl (12.0-16.0); MEAN CELL VOLUME 84.9 fl (81.0-99.0)
[2018-04-19 07:11] LABS: ABG BASE EXCESS 7.8 mmol/L (-2.0-2.0); ABG HCO3 32.9 mmol/l (22-26); ABG O2 SATURATION 98.4 % (95-97); ARTERIAL BLOOD GAS PCO2 50.6 mmHg (35-45); ARTERIAL BLOOD GAS PH 7.429 (7.35-7.45); ARTERIAL BLOOD GAS PO2 88.1 mmHg (80-90)
--- NOTE | 2018-04-19 09:15 | NUR ---
RESTING IN BED WITH EYES CLOSED. SEDATED ON DIPRIVAN GTT AT 40 YULY'S (21.8CC/HR). LEVOPHED GTT INFUSING AT 12 YULY'S(90CC/HR) AND NS INFUSING AT 150CC/HR ALL VIA RIJ MLC. SCATTERED RHONCHI AND WHEEZES HEARD IN LUNG MAY. PULSE OX 99% ON VENT FIO2 40%. BENAVIDEZ DRAINING DARK YAZMIN URINE.
[2018-04-19] MEDS ORDERED: BUMETANIDE1 MG PO (11:13)
[2018-04-19] MEDS ORDERED: DESENEX43 GM T (11:16)
[2018-04-19] MEDS ORDERED: DULERA 200 MCG8.8 GM INH (11:18)
[2018-04-19] MEDS ORDERED: GERI-LANTA 355355 ML PO (11:20)
[2018-04-19] MEDS ORDERED: VISTARIL25 M2 PO (11:23)
[2018-04-19] MEDS ORDERED: ZESTRIL5 MG PO (11:24)
[2018-04-19] MEDS ORDERED: PRILOSEC20 M1 PO (11:25)
[2018-04-19] MEDS ORDERED: K-TAB20 MEQ PO (11:28)
--- NOTE | 2018-04-19 11:30 | NUR ---
DR. PEREIRA HERE AND SEDATION TURNED OFF. SON UPDATED ON PATIENT'S CONDITION. FULLY AWAKE AND MOVING ALL FOUR EXTREMITIES. DIPRIVAN GTT TURNED BACK ON AT 40 YULY'S
[2018-04-19] MEDS ORDERED: RESTASIS1 EACH OP (11:34)
[2018-04-19] MEDS ORDERED: FLORASTOR250 MG PO (11:51)
--- NOTE | 2018-04-19 14:09 | NUR ---
LEVOPHED GTT TITRATED DOWN TO 8 YULY'S (60CC/HR) FOR BP 111/68 WITH MAP 81
--- NOTE | 2018-04-19 16:55 | NUR ---
PHYSICAL THERAPY PT DIPESH ATTEMPTED IN ICCU HOWEVER PER NURSING SHE IS CURRENTLY ON VENT AND NOT APPROPRIATE FOR PT INTERVENTION. THANK YOU FOR REFERRAL CASSIE CANTU PT
[2018-04-19 17:28] LABS: BUN 22 mg/dl (7-24); CHLORIDE 101 mmol/L (98-107); CREATININE 0.45 mg/dL (0.55-1.02); POTASSIUM 2.8 mmol/L (3.5-5.1); SODIUM 141 mmol/L (136-145)
--- NOTE | 2018-04-19 18:00 | NUR ---
LEVOPHED GTT TITRATED DOWN TO 6 YULY'S.
[2018-04-20] VITALS (90 sets, daily range): BP systolic 56–139; BP diastolic 25–81
[2018-04-20 06:00] LABS: BASO # 0.1 10*3/uL (0.0-0.1); BASO % 0.4 % (0.0-1.0); EOS # 0.5 10*3/uL (0.0-0.4); EOS % 3.1 % (1.0-4.0); HEMATOCRIT 37.8 % (37.0-47.0); HEMOGLOBIN 10.7 g/dl (12.0-16.0); LYMPH # 2.1 10*3/uL (1.3-4.4); LYMPH % 13.5 % (27.0-41.0); MEAN CELL VOLUME 82.2 fl (81.0-99.0); MEAN CORPUSCULAR HGB 23.3 pg (27.0-31.0); MEAN CORPUSCULAR HGB CONC 28.3 g/dl (33.0-37.0); MEAN PLATELET VOLUME 11.7 fl (9.6-12.3); MONO # 1.3 10*3/uL (0.1-1.0); MONO % 8.2 % (3.0-9.0); NEUT # 11.4 10*3/uL (2.3-7.9); NEUT % 73.7 % (47.0-73.0); PLATELET COUNT AUTOMATED 471 10*3/uL (130-400); RED CELL DISTRI WIDTH 18.1 % (0-14.5); WHITE BLOOD COUNT 15.5 10*3/uL (4.8-10.8)
[2018-04-20 06:11] LABS: BUN 22 mg/dl (7-24); CHLORIDE 100 mmol/L (98-107); POTASSIUM 3.2 mmol/L (3.5-5.1); SODIUM 140 mmol/L (136-145)
--- NOTE | 2018-04-20 07:15 | NUR ---
DR MCCANN NOTIFIED OF PT CHANGE IN HEART RYTHM TO A FIB. NEW ORDER FOR LOVENOX 1MG/KG Q12H.
[2018-04-20 08:17] LABS: ABG BASE EXCESS 5.9 mmol/L (-2.0-2.0); ABG HCO3 30.4 mmol/l (22-26); ABG O2 SATURATION 97.4 % (95-97); ARTERIAL BLOOD GAS PCO2 46.8 mmHg (35-45); ARTERIAL BLOOD GAS PH 7.431 (7.35-7.45); ARTERIAL BLOOD GAS PO2 93.3 mmHg (80-90)
--- NOTE | 2018-04-20 12:30 | NUR ---
PHYSICAL THERAPY PATIENT IS STILL ON VENT IN ICCU AND PER NURSING CODE STATUS HAS BEEN DOWNGRADED AND SHE IS STILL NOT APPROPRIATE FOR ANY PT INTERVENTION AT THIS TIME. THANK YOU CASSIE CANTU PT
--- NOTE | 2018-04-20 14:12 | NUR ---
TRIED TO TITRATED LEVOPHED GTT FROM 15MCG/MIN TO 12MCG/MIN BUT PT'S BP PRESSURE DROPPED AND MAP OF ONLY62. TITRATED BACK UP TO 15MCG/MIN. WILL CONTINUE TO MONITOR.
--- NOTE | 2018-04-20 14:53 | NUR ---
DOUBLE STRENGTH LEVOPHED GTT HUNG AT THIS TIME PER REQUEST OF DR PEREIRA.
--- NOTE | 2018-04-20 15:31 | NUR ---
DR JALLOH IN TO SEE PT AND MADE AWARE OF PT'S HYPOTENSION ALONG WITH ATRIAL FIB WITH RATE NOW UP TO 120'S AT TIMES. ORDER FOR IV DIGOXIN ORDERED.
--- NOTE | 2018-04-20 18:00 | NUR ---
PT CONVERTED FROM AFIB TO NSR RATE 80'S AT THIS TIME AFTER RECEIVING DIGOXIN THIS AFTERNOON. WILL CONTINUE TO MONITOR.
--- NOTE | 2018-04-20 22:56 | NUR ---
GURMEET TRAN [id number] Please refer to the physician's history and physical for past medical history, comorbid conditions, and allergies. Diagnosis: AC RESP FAILURE W/HYPOXIA AND HYPERCAPNIA Andrae Score: 10,HIGH RISK WOUND DESCRIPTIONS: Location of the wound: LEFT GREAT TOE Thickness: Full Size: 0.8cm X 0.4cm X 0.1cm Tunneling: NONE Undermining: NONE Sinus Tract: NONE Presence of Exudate: Purulent Amount: Moderate Color: Brown, RED Odor: None Periwound Skin Appearance: Erythema Wound edges: APPROXIMATED Pain (associated with wound): TENDER TO TOUCH How does patient state this happened? PATIENT UNSURE HOW THIS HAPPENED. If wound is on legs/feet or hands, capillary refill time, pulses, color temp, sensation: CAP REFILL < 3 SECONDS. ASSESSED PATIENT'S RIGHT BUTTOCK, LEFT BUTTOCK AND COCCYX RED BLANCHABLE AND INTACT. NO DRAINAGE NOTED. Surface the patient is resting on: XPRT SKIN PREVENTION RECOMMENDATION: 1. Pressure redistribution support surface as appropriate 2. Elevate heels 3. Remove boots/TEDS every shift and reapply 4. Head of bed 30 degrees as tolerated 5. Assess nutrition and hydration 6. Manage moisture 7. Avoid the use of containment devices while in bed 8. Use absorptive products on surfaces limit layers of linens on bed 9. Turn and reposition every 1-2 hours in bed and every 1 hour in chair as tolerated 10. Weight shifts every 15 minutes while up in chair 11. Offloading with pillows or device to keep heels elevated off bed 12. Monitor skin at least every shift 13. Inspect under medical devices twice a day WOUND TREATMENT RECOMMENDATIONS: CONSULT PODIATRY FOR LEFT GREAT TOE. X-RAY OF LEFT GREAT TOE. CLEANSE LEFT GREAT TOE WITH NSS APPLY ANTIBIOTIC OINTMENT AND COVER WITH A BANDAID.
[2018-04-21] VITALS (96 sets, daily range): BP systolic 71–182; BP diastolic 34–90
[2018-04-21 05:52] LABS: BASO # 0.1 10*3/uL (0.0-0.1); BASO % 0.5 % (0.0-1.0); EOS # 0.6 10*3/uL (0.0-0.4); EOS % 4.3 % (1.0-4.0); HEMOGLOBIN 10.7 g/dl (12.0-16.0); LYMPH # 1.5 10*3/uL (1.3-4.4); LYMPH % 11.9 % (27.0-41.0); MEAN CELL VOLUME 81.8 fl (81.0-99.0); MEAN CORPUSCULAR HGB 22.4 pg (27.0-31.0); MEAN CORPUSCULAR HGB CONC 27.4 g/dl (33.0-37.0); MEAN PLATELET VOLUME 11.4 fl (9.6-12.3); MONO # 1.1 10*3/uL (0.1-1.0); MONO % 8.5 % (3.0-9.0); NEUT # 9.3 10*3/uL (2.3-7.9); NEUT % 72.4 % (47.0-73.0); PLATELET COUNT AUTOMATED 401 10*3/uL (130-400); RED BLOOD COUNT 4.77 10*6/uL (4.10-5.10); RED CELL DISTRI WIDTH 17.9 % (0-14.5); WHITE BLOOD COUNT 12.8 10*3/uL (4.8-10.8)
[2018-04-21 06:09] LABS: CHLORIDE 103 mmol/L (98-107); POTASSIUM 3.2 mmol/L (3.5-5.1); SODIUM 145 mmol/L (136-145)
[2018-04-21 06:27] LABS: ALBUMIN 1.9 gm/dl (3.1-4.5); ALKALINE PHOSPHATASE 68 U/L (45-117); BUN 19 mg/dl (7-24); CREATININE 0.48 mg/dL (0.55-1.02); SGOT/AST 11 IU/L (3-35); SGPT/ALT 11 U/L (12-78)
--- NOTE | 2018-04-21 07:09 | NUR ---
PHYSICAL THERAPY PAtient not medically appropriate for PT at this date. Thank you for this referral. Miley Jerez,PT
--- NOTE | 2018-04-21 09:00 | NUR ---
Mill Worker in to see patient. She is currently intubated. Will follow up at a later time. Discharge plan undecided.
--- NOTE | 2018-04-21 10:00 | NUR ---
LEVOPHED GTT TITRATED DOWN TO 11 YULY'S BUT BP DROPPED TO 80'S SYSTOLIC. ART LINE REMOVED FROM LEFT RADIAL IT WAS NOT GIVING CORRECT BP RESULTS AND NOT ABLE TO DRAW ENOUGH BLOOD FOR ABG'S. AWAKEN AND ALERT. TAPPING ON RAILS. RESTLESS. DIPRIVAN GTT TITRATED UP TO 30 YULY'S BUT BP QUICKLY DROPPED SO DIPRIVAN GTT PUT BACK ON 20 YULY'S.
[2018-04-21 10:05] LABS: ABG HCO3 33.8 mmol/l (22-26); ABG O2 SATURATION 96.3 % (95-97); ARTERIAL BLOOD GAS PCO2 48.3 mmHg (35-45); ARTERIAL BLOOD GAS PH 7.459 (7.35-7.45); ARTERIAL BLOOD GAS PO2 73.2 mmHg (80-90)
--- NOTE | 2018-04-21 14:40 | NUR ---
DR. PEREIRA HERE. SEDATION TURNED OFF. TO BE PLACED ON C-PAP 5; PS 10 ONCE AWAKE.
[2018-04-21 17:04] LABS: ABG BASE EXCESS 10.3 mmol/L (-2.0-2.0); ABG HCO3 36.4 mmol/l (22-26); ABG O2 SATURATION 96.1 % (95-97); ARTERIAL BLOOD GAS PCO2 57.8 mmHg (35-45); ARTERIAL BLOOD GAS PH 7.416 (7.35-7.45); ARTERIAL BLOOD GAS PO2 77.5 mmHg (80-90)
--- NOTE | 2018-04-21 17:15 | NUR ---
DR. PEREIRA NOTIFIED OF ABG RESULTS. PLACED BACK ON VENT AND TO BE PLACED AGAIN ON C-PAP AT 7AM.
--- NOTE | 2018-04-21 20:09 | NUR ---
1930 RESTING IN BED ON BACK. HOB ELEVATED. SIDE RAILS UP X'S 2. EYES OPEN. FOLLOWS COMMANDS. RIJ MLC INTACT. DIPRIVAN GTT CONT AT 15MICS. DBL STRENTGH LEVOPHED GTT CONT. SEE INTERVENTION SCREEN FOR Q15MIN BP'S. NPO. ORAL AND EYE CARE DONE. MUCOUS MEMBRANES DRY IN APPEARANCE. OGT INTACT. TF MAINTAINED. NO RESIDUAL NOTED. WRIST RESTRAINTS INTACT BILATERALLY. CIRUCULATION ADEQUATE. BENAVIDEZ PATENT AND DRAINING CLEAR YELLOW URINE.
--- NOTE | 2018-04-21 22:07 | NUR ---
2100 ON BEDPAN PER REQUEST. 2129 HAD VERY LARGE LIQUID STOOL. COMPLETE BED BATH GIVEN AND LINENS CHANGED. TOLREATED WELL.
[2018-04-22] VITALS (93 sets, daily range): BP systolic 80–148; BP diastolic 35–82
--- NOTE | 2018-04-22 00:26 | NUR ---
SLEEPING AT SMALL INTERVALS. REMAINS ALERT AND COOPERATIVE.
[2018-04-22 05:39] LABS: ALBUMIN 1.7 gm/dl (3.1-4.5); ALKALINE PHOSPHATASE 68 U/L (45-117); BUN 18 mg/dl (7-24); CHLORIDE 102 mmol/L (98-107); CREATININE 0.45 mg/dL (0.55-1.02); POTASSIUM 3.5 mmol/L (3.5-5.1); SGOT/AST 11 IU/L (3-35); SGPT/ALT 10 U/L (12-78); SODIUM 145 mmol/L (136-145); TOTAL PROTEIN 4.9 gm/dL (6.4-8.2)
--- NOTE | 2018-04-22 06:06 | NUR ---
0600 ET REMAINS SECURE TO VENT. PULSE OX 97% ON 35% FIO2. DIPRIVAN AND LEVOPHED GTTS CONT. OGT INTACT WITH TF MAINTAINED. BENAVIDEZ PATENT. NO DISTRESS NOTED. RESPIRATORY THERAPY AWARE OF ORDER FOR PT TO BE PUT ON CPAP AT 0700 AFTER SEDATION STOPPED. CONDITION GUARDED.
--- NOTE | 2018-04-22 07:18 | NUR ---
PHYSICAL THERAPY PAtient not medically appropriate for PT at this date. Continues on vent. Thank you for this referral. Miley Jerez,PT
--- NOTE | 2018-04-22 07:30 | NUR ---
PT PLACED TO CPAP VENT SETTINGS AFTER INTSRUCTIONS AND EXPLANATIONS R/T CPAP TRIALS GIVEN TO PT.
--- NOTE | 2018-04-22 08:57 | NUR ---
PT TOLERATING CPAP WELL AT THIS TIME. PT'S SON, PERRY, CQALLED AND I UPDATED HIM ON PT'S CONDITION CPAP TRIAL. HIS QUESTIONS WERE ANSWERED.
[2018-04-22 10:19] LABS: ABG HCO3 36.7 mmol/l (22-26); ABG O2 SATURATION 96.5 % (95-97); ARTERIAL BLOOD GAS PCO2 69.1 mmHg (35-45); ARTERIAL BLOOD GAS PH 7.342 (7.35-7.45); ARTERIAL BLOOD GAS PO2 83.3 mmHg (80-90)
--- NOTE | 2018-04-22 10:33 | NUR ---
DR PEREIRA NOTIFIED OF ABG RESULTS. ORDERED TO LEAVE PT ON ON CPA AND REPEAT ABG IN 2 HOURS.
[2018-04-22 11:43] LABS: ABG BASE EXCESS 9.8 mmol/L (-2.0-2.0); ABG HCO3 36.9 mmol/l (22-26); ABG O2 SATURATION 97.6 % (95-97); ARTERIAL BLOOD GAS PCO2 67.5 mmHg (35-45); ARTERIAL BLOOD GAS PH 7.358 (7.35-7.45); ARTERIAL BLOOD GAS PO2 94.2 mmHg (80-90)
--- NOTE | 2018-04-22 12:11 | NUR ---
DR PEREIRA IN TO SEE PT. UPODATED HIM ON PT'S CONDITION AND LAB RESULTS. DR PEREIRA SPOKE WITH PT REGARDING HER WISHES REGARDING CODE STATUS AND REINTUBATION. PT STATED SHE DOES NOT WANT CPR OR REINTUBATION. WILL ASK PT AGAIN WHEN HER SON PERRY IS HERE AND FILL OUT APPROPRIATE PAPERS.
--- NOTE | 2018-04-22 12:45 | NUR ---
PT'S SON BACK, VISITING WITH PT. I SPOKE WITH PT AND SON REGARDING PT'S WISHES REGARDING CODE STATUS. PT AGAIN WAS ASKED IF SHE WOULD WANT REINTUBATION IF SHE WOULD GET INTO RESP. DISTRESS AGAIN AFTER EXTUBATION. SHE DOES NOT WANT REINTUBATION OR CPR. PT'S SON AGREED WITH PT'S DECISION. CODE STATUS PAPERS FILLED OUT BUT PT UNABLE TO SIGN. DNRCC ARREST NO INTUBATION NO CPR PAPERS SIIGNED BY DR PEREIRA, PT'S SON AND 2 RN'S.
--- NOTE | 2018-04-22 12:55 | NUR ---
PT EXTUBATED TO BIPAP 04/02. DR PEREIRA TALKED WITH PT AND FAMILY AFTER EXTUABTION. DR PEREIRA STATED PT IS TO REMAIN NPO UNTIL TOMORROW.
--- NOTE | 2018-04-22 13:35 | NUR ---
PT C/O BIAPA PRESSURE TOO MUCH. DR PEREIRA HERE AND NOTIFIED. ORDER RECEIVED TO DECREASE BIAPA TO 12/8. DILAN FROM RESP. THERAPY NOTIFIED.
--- NOTE | 2018-04-22 13:41 | NUR ---
SETINGS FOR BIPAP DECRESED TO 03/[address] PEREIRA'S ORDERS.
--- NOTE | 2018-04-22 15:34 | NUR ---
DR SALAS IN TO SEE PT. UPDATED HIM ON PT'S CONDITION AND PLAN OF CARE.
--- NOTE | 2018-04-22 16:33 | NUR ---
PT AWAKE AND VERY ANXIOUS R/T BIPAP. BIPAP TAKEN OFF AND 4L NC APPLIED AT THIS TIME. PT SETTLED DOWN WITH BIPAP OFF. WILL CONTINUE TO MONITOR PT.
--- NOTE | 2018-04-22 19:16 | NUR ---
PT REQUESTED BEDPAN. PT HAD BROWN LIQUID BM. PT CLEANSED AND HYDROGAURD APPLIED PER ORDER.
[2018-04-23] VITALS (71 sets, daily range): BP systolic 75–132; BP diastolic 25–90
--- NOTE | 2018-04-23 00:56 | NUR ---
LEVOPHED GTT TITRATED UP TO 8MCG/MIN DUE TO SBP 70-80'S WITH MEAN ARTERIAL PRESSURES OF 48-53. WILL CONTINUE TO MONITOR.
[2018-04-23 05:39] LABS: ALBUMIN 1.8 gm/dl (3.1-4.5); ALKALINE PHOSPHATASE 71 U/L (45-117); BUN 17 mg/dl (7-24); CHLORIDE 102 mmol/L (98-107); POTASSIUM 3.7 mmol/L (3.5-5.1); SGOT/AST 9 IU/L (3-35); SGPT/ALT 9 U/L (12-78); SODIUM 147 mmol/L (136-145); TOTAL PROTEIN 5.4 gm/dL (6.4-8.2)
--- NOTE | 2018-04-23 06:10 | NUR ---
PT MEAN ARTERIAL PRESSURE HAD REMAINED <65. LEVOPHED GTT TITRATED UP TO 10MCG/MIN.
--- NOTE | 2018-04-23 07:40 | NUR ---
PHYSICAL THERAPY PAtient extubated. PAtient not medically appropriate for PT this date. Mileylauren Jerez,PT
--- NOTE | 2018-04-23 08:51 | NUR ---
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 She was at another facility until a couple of weeks ago and transferred to [facility] to be closer to home. Patient has been in and out of multiple hospitals and facilities for the last 6+ months from her health issues.
--- NOTE | 2018-04-23 09:00 | NUR ---
Informatics Spec in to see patient. No new needs or request at this time. When medically stable she will be discharged to [facility]. convention planner following.
--- NOTE | 2018-04-23 09:14 | NUR ---
Recommend follow up for wound care in outpatient setting patient being discharge to another facility at this time.
--- NOTE | 2018-04-23 09:36 | NUR ---
DR. BOJORQUEZ NOTIFIED OF CONSULT FOR LEFT FOOT WOUND
--- NOTE | 2018-04-23 13:28 | NUR ---
Occupational Therapy referral received this date. Patient just extubated and in ICCU. She is not appropriate for OT at this time. Paulina Ott OTR/l
--- NOTE | 2018-04-23 14:35 | NUR ---
DR. RAGLAND HERE TO SEE PATIENT ON CONSULT.
--- NOTE | 2018-04-23 15:00 | NUR ---
PULSE OX 85% ON 3L NASAL CANNULA. FACE FLUSHED. PLACED BACK ON BI-PAP 03/29 FIO2 40%
--- NOTE | 2018-04-23 15:30 | NUR ---
LEVOPHED GTT TITRATED DOWN TO 4 YULY'S
--- NOTE | 2018-04-23 16:30 | NUR ---
levophed gtt titrated down to 2 julia's.
--- NOTE | 2018-04-23 18:16 | NUR ---
LEVOPHED GTT TURNED OFF. BP 110/47.
--- NOTE | 2018-04-23 20:00 | NUR ---
PATIENT REQUESTED TO USE PHONE TO CALL SON. ONCE SHE WAS FINISHED, SHE TOLD ME SHE NEEDED A WHEELCHAIR TO GET AROUNG IN HER HOUSE, I EXPLAINED TO HER SHE WAS IN THE HOSPITAL, SHE STATED NO, SHE WAS AT HOME AND IT WAS JUST LIKE THE HOSPITAL. I TRIED TO ORIENT HER AND SHE SAYS HER HOUSE IS WHERE THE HOSPITAL IS. PATIENT PLACED BACK ON BIPAP TO REST.
--- NOTE | 2018-04-23 21:10 | NUR ---
PATIENT REQUESTED SLEEPING PILL, SARAH GIVEN. WILL MONITOR.
--- NOTE | 2018-04-23 22:26 | NUR ---
24 HR chart check completed.
[2018-04-24 00:02] VITALS: BP 98/41
[2018-04-24 04:03] VITALS: BP 94/50
[2018-04-24 05:49] LABS: BASO % 0.5 % (0.0-1.0); EOS # 0.4 10*3/uL (0.0-0.4); EOS % 4.4 % (1.0-4.0); HEMATOCRIT 35.4 % (37.0-47.0); HEMOGLOBIN 9.3 g/dl (12.0-16.0); LYMPH # 0.9 10*3/uL (1.3-4.4); LYMPH % 10.7 % (27.0-41.0); MEAN CELL VOLUME 87.2 fl (81.0-99.0); MEAN CORPUSCULAR HGB 22.9 pg (27.0-31.0); MEAN CORPUSCULAR HGB CONC 26.3 g/dl (33.0-37.0); MEAN PLATELET VOLUME 12.3 fl (9.6-12.3); MONO # 0.8 10*3/uL (0.1-1.0); NEUT # 6.5 10*3/uL (2.3-7.9); NEUT % 74.5 % (47.0-73.0); PLATELET COUNT AUTOMATED 297 10*3/uL (130-400); RED BLOOD COUNT 4.06 10*6/uL (4.10-5.10); RED CELL DISTRI WIDTH 17.7 % (0-14.5); WHITE BLOOD COUNT 8.7 10*3/uL (4.8-10.8)
--- NOTE | 2018-04-24 07:47 | NUR ---
Patient clinical updates faxed to [facility] for review. Notified of bipap use, faxed order and settings. Patient is short term care and can return when medically stable for discharge.
[2018-04-24 07:57] VITALS: BP 97/48
--- NOTE | 2018-04-24 08:00 | NUR ---
Spoke with Dr. Recinos regarding x-ray results. He asked if patient had pacemaker. After speaking with nurse caring for patient this nurse informed his that patient didn't have a pacemaker.
--- NOTE | 2018-04-24 08:00 | NUR ---
TAKEN OFF BI-PAP. PLACED ON NASAL CANNULA 4L. PULSE OX 91%. COMPLAINS OF SHORTNESS OF BREATH. RIJ MLC INTACT. LUNGS CLEAR BILATERALLY. 1+ EDEMA NOTED TO BILATERAL LOWER EXTREMITIES. BENAVIDEZ DRAINING CLEAR YELLOW URINE.
--- NOTE | 2018-04-24 08:45 | NUR ---
Patient not available as she eating breakfast. Paulina Ott OTR/L
--- NOTE | 2018-04-24 09:00 | NUR ---
Airworthiness Inspector in to see patient. No new needs or request at this time. When medically stable she will be [facility] to [facility]. business continuity planner following.
[2018-04-24 10:33] LABS: ABG HCO3 39.5 mmol/l (22-26); ABG O2 SATURATION 98.2 % (95-97); ARTERIAL BLOOD GAS PCO2 69.3 mmHg (35-45); ARTERIAL BLOOD GAS PH 7.369 (7.35-7.45)
--- NOTE | 2018-04-24 10:36 | NUR ---
Patient on bipap machine with 77% oxygen. Patient reporting that she did not feel well. Paulina Ott OTR/L
--- NOTE | 2018-04-24 11:11 | NUR ---
PHYSICAL THERAPY Attempted PT evaluaiton at 8:45am. PAtient alert and eager to particpate however: PAtient with freshly wet just mopped floor and eating breakfast. PT returned at 10:37am, patient looking very poor, on Bipap amd shaking head no about PT at this time. Significant change, Will check later this date. Thank you for this referral. Miley Jerez,PT
[2018-04-24 11:40] VITALS: BP 100/55
--- NOTE | 2018-04-24 12:06 | NUR ---
VERY ANXIOUS. RESTLESS. DR. DENG NOTIFIED AND ORDERS RECEIVED FOR BUSPAR NEEDED
--- NOTE | 2018-04-24 13:47 | NUR ---
Pateint on bipap, in high flower position and resting in ICCU. OTR to attempt evaluation at a later date. Paulina Ott OTR/L
--- NOTE | 2018-04-24 14:00 | NUR ---
PHYSICAL THERAPY Patient continues on BIPAP, sleeping, signficiant dypsneia sitting inclined in bed. MAy require LTAC prior to SNF. Miley Jerez,PT
--- NOTE | 2018-04-24 14:55 | NUR ---
Spoke to son, Heriberto, at [phone] regarding discharge planning. He is not sure he wants his mother to go back to [facility]. [place] [facility] Informed [facility] is normally full but the [facility] family also has [facility] [place]. Discussed [facility], [place], and [place]. She has been in [place] and [facility]. She has also been at [facility] in [place]. Son coming in tomorrow to discuss further. urban and regional planner notified.
--- NOTE | 2018-04-24 15:00 | NUR ---
VERY ANXIOUS. REQUESTING A BREATHING TREATMENT. TAKEN OFF BI-PAP AND PLACED ON 4L NASAL CANNULA.
--- NOTE | 2018-04-24 15:40 | NUR ---
Occupational Therapy evaluation offered to patient. She declined as she was SOB and not feeling well. Paulina Ott OTR/L
--- NOTE | 2018-04-24 15:49 | NUR ---
PHYSICAL THERAPY PAtient respectfully declines PT this pm. Miley Jerez,PT
[2018-04-24 16:00] VITALS: BP 109/73
--- NOTE | 2018-04-24 18:20 | NUR ---
PULSE OX 79% ON BI-PAP. 02 INCREASED TO 65%. PULSE OX INCREASED TO 90%
[2018-04-24 20:00] VITALS: BP 95/42
--- NOTE | 2018-04-24 23:35 | NUR ---
MEDICATED WITH PRN AMBIEN AND TYLENOL PER ORDERS AND REQUEST.
[2018-04-25] VITALS: BP 137/65
--- NOTE | 2018-04-25 02:20 | NUR ---
TYLENOL AND AMBIEN EARLIER HELPED. 24 HR chart check completed.
[2018-04-25 04:00] VITALS: BP 118/62
[2018-04-25 08:00] VITALS: BP 121/42
--- NOTE | 2018-04-25 08:29 | NUR ---
Awake and alert. BI-pap to OFF for assessment and oral care. Discussed re- intubation w/ pt. who stated NO . also discussed hospice, when asked if she would be interested pt. stated YES. Fecal containment system inserted as pt. has projectile liquid stool , poor muscle tone noted w/ flaccid BLE. Oral mucosa dry w/ scabs present to both upper and lower lips, oral care given w/ lubricant utilized for moisture addition. Face washed, Repositioned to left. Frequent use of call light , stating "I need help ", "I cant breathe" tachypenia w/ resp 24-28 short , shallow breaths. RT here and Bi Pap placed. Resting more comfortably at this time.
--- NOTE | 2018-04-25 09:36 | NUR ---
PO meds held as pt. able to nod head only. mottled to knee . Titrating O2 up.
--- NOTE | 2018-04-25 10:40 | NUR ---
Supervisor Instrument Mechanics in to see patient and son who is at the bedside. Had a lengthy discussion regarding discharge planning and hospice. [facility] he believes when she had hospice. She was in the home with hospice and that is not his preference. He would rather have her general inpatient hospice if that is possible. He within the last month lost a brother to cancer. When given a list of hospice agencies, he chose [facility]. traffic and transport planner notified and following.
[2018-04-25 10:54] LABS: MEAN CORPUSCULAR HGB 22.5 pg (27.0-31.0); MEAN CORPUSCULAR HGB CONC 24.7 g/dl (33.0-37.0); MEAN PLATELET VOLUME 12.5 fl (9.6-12.3); RED BLOOD COUNT 5.11 10*6/uL (4.10-5.10); RED CELL DISTRI WIDTH 18.1 % (0-14.5); WHITE BLOOD COUNT 16.5 10*3/uL (4.8-10.8)
[2018-04-25 10:56] LABS: HEMOGLOBIN 11.5 g/dl (12.0-16.0)
[2018-04-25 10:57] LABS: HEMATOCRIT 46.5 % (37.0-47.0); PLATELET COUNT AUTOMATED 600 10*3/uL (130-400)
--- NOTE | 2018-04-25 11:05 | NUR ---
PHYSICAL THERAPY PAtient not medically appropriate at this date for evaluation. Miley Maricruz Jerez,PT
--- NOTE | 2018-04-25 11:07 | NUR ---
Patient has had a decline in medical status and is mottled, SOB and had to have a fecal tube reinserted. Not appropriated for Occupational Therapy at this time. Paulina Ott OTR/l
[2018-04-25 11:11] LABS: ALBUMIN 2.1 gm/dl (3.1-4.5); ALKALINE PHOSPHATASE 73 U/L (45-117); BUN 21 mg/dl (7-24); CHLORIDE 95 mmol/L (98-107); SGOT/AST 14 IU/L (3-35); SGPT/ALT 11 U/L (12-78); SODIUM 143 mmol/L (136-145); TOTAL PROTEIN 6.1 gm/dL (6.4-8.2)
--- NOTE | 2018-04-25 11:15 | NUR ---
Order for hospice received, son at bedside stated he is not familiar with hospice agencies, chose [facility]. Contacted facility liason and faxed referral; hospice should be here by 11:30 am.
[2018-04-25 11:21] LABS: DIGOXIN 1.85 ng/ml (0.8-2.0); TOTAL CELLS COUNTED 100 #CELLS
[2018-04-25 11:22] LABS: PLATELET SUFFICIENCY HIGH (NORMAL); STOMATOCYTE FEW
--- NOTE | 2018-04-25 11:24 | NUR ---
0930 Dr. Hope in to evaulate. Aware of hypothermia R temp-96.6 . evternal heating source ordered and applied. Repositioned to back. Oral care given. 1000 Dr. De Leon in informed of decline in status , with motteling of lower legs, Stated that he had spoken to the family as to hospice. Son arrived and was notified of my converstaion w/ pt. as to hospice and re- intubation. Son agreeable to comfort care and hospice evaulation. CC status instituted. 1120. Hypotensive. Son remains at bedside. when asked about ministeral care stated he would like the house rocket assembly operator to offer a word of prayer with his mom. Pastoral services was called. Responded and will be in. case mgt called also stating that [facility] hospice would be arriving in approx. 45 min. Son aware.
[2018-04-25 12:00] VITALS: BP 52/19
--- NOTE | 2018-04-25 12:55 | NUR ---
AT 1240 PT BRADYCARDIC WHILE SON TALKING WITH HOSPICE NURSE, THEN ASYSTOLIC. APNEIC. SON AT THE BEDSIDE. ENCOURAGED TO HOLD HER HAND. BIPAP REMOVED. ONE CALL HAS BEEN NOTIFIED. BODY CAN BE RELEASED.
--- NOTE | 2018-04-25 13:41 | NUR ---
Azael England and Jayy notified of . Renan notified of need for their service. Post mortem care complete awaiting transportation.
== END 2018-04-25 12:40 | disposition expired | DRG 870 ==
LOC: ED 09:45 → ICCU 11:49 → EDHOLD 11:49 → ICCU 11:57
PROVIDERS: Emergency Medicine; Internal Medicine Cardiovascular Disease; Internal Medicine Critical Care Medicine; ADMIT Internal Medicine
PROC: B34JZZZ Ultrasonography of Left Upper Extremity Arteries (ICD-10-PCS; principal; 2018-04-18)
PROC: 5A1955Z Respiratory Ventilation, Greater than 96 Consecutive Hours (ICD-10-PCS; principal; 2018-04-18)
PROC: 03HC33Z Insertion of Infusion Device into Left Radial Artery, Percutaneous Approach (ICD-10-PCS; principal; 2018-04-18)
PROC: 0BH17EZ Insertion of Endotracheal Airway into Trachea, Via Natural or Artificial Opening (ICD-10-PCS; principal; 2018-04-18)
PROC: 02HV33Z Insertion of Infusion Device into Superior Vena Cava, Percutaneous Approach (ICD-10-PCS; principal; 2018-04-18)
PROC: B548ZZA Ultrasonography of Superior Vena Cava, Guidance (ICD-10-PCS; principal; 2018-04-18)
PROC: 5A09357 Assistance with Respiratory Ventilation, Less than 24 Consecutive Hours, Continuous Positive Airway Pressure (ICD-10-PCS; 2018-04-22)
PROC: 5A09357 Assistance with Respiratory Ventilation, Less than 24 Consecutive Hours, Continuous Positive Airway Pressure (ICD-10-PCS; 2018-04-23)
PROC: 5A09357 Assistance with Respiratory Ventilation, Less than 24 Consecutive Hours, Continuous Positive Airway Pressure (ICD-10-PCS; 2018-04-24)
PROC: 5A09357 Assistance with Respiratory Ventilation, Less than 24 Consecutive Hours, Continuous Positive Airway Pressure (ICD-10-PCS; 2018-04-25)
DX: A41.9 Sepsis, unspecified organism (principal); J18.9 Pneumonia, unspecified organism; J96.21 Acute and chronic respiratory failure with hypoxia; J96.22 Acute and chronic respiratory failure with hypercapnia; I50.43 Acute on chronic combined systolic (congestive) and diastolic (congestive) heart failure; N39.0 Urinary tract infection, site not specified; I42.9 Cardiomyopathy, unspecified; G93.40 Encephalopathy, unspecified; J44.1 Chronic obstructive pulmonary disease with (acute) exacerbation; J44.0 Chronic obstructive pulmonary disease with (acute) lower respiratory infection; E87.3 Alkalosis; E87.0 Hyperosmolality and hypernatremia; Z68.37 Body mass index [BMI] 37.0-37.9, adult; R65.20 Severe sepsis without septic shock; I48.0 Paroxysmal atrial fibrillation; I11.0 Hypertensive heart disease with heart failure; Z66 Do not resuscitate; T68.XXXA Hypothermia, initial encounter; Z51.5 Encounter for palliative care; I89.0 Lymphedema, not elsewhere classified; R62.7 Adult failure to thrive; I45.10 Unspecified right bundle-branch block; M19.90 Unspecified osteoarthritis, unspecified site; Z96.1 Presence of intraocular lens; E03.9 Hypothyroidism, unspecified; E66.01 Morbid (severe) obesity due to excess calories; T50.2X5A Adverse effect of carbonic-anhydrase inhibitors, benzothiadiazides and other diuretics, initial encounter; E87.6 Hypokalemia; Y92.89 Other specified places as the place of occurrence of the external cause; Z98.42 Cataract extraction status, left eye; Z88.8 Allergy status to other drugs, medicaments and biological substances; Z88.1 Allergy status to other antibiotic agents; Z88.2 Allergy status to sulfonamides; Z91.048 Other nonmedicinal substance allergy status; Z98.41 Cataract extraction status, right eye; Z90.49 Acquired absence of other specified parts of digestive tract; Z91.81 History of falling; Z90.710 Acquired absence of both cervix and uterus; Z87.891 Personal history of nicotine dependence; Z81.1 Family history of alcohol abuse and dependence; Z82.5 Family history of asthma and other chronic lower respiratory diseases; Z84.89 Family history of other specified conditions; Z79.899 Other long term (current) drug therapy; Z79.82 Long term (current) use of aspirin